=== PATIENT | female | born 1940 | race African-American/Black ===

== ENCOUNTER → 2017-02-13 | Outpatient (CLI) | payer MEDICARE, MEDICAID ==
--- NOTE | 2017-02-13 16:44 | WOMENS IMAGING REPORT ---
EXAM DESCRIPTION: BILAT SCREENING MAMMO W/CAD COMPLETED DATE/TIME: 02/13/2017 8:21 am REASON FOR STUDY: SCREENING MAMMO Z12.31 ENCNTR SCREEN MAMMOGRAM FOR MALIGNANT NEOPLASM OF DEO COMPARISON: 2008 to 2015 TECHNIQUE: Standard craniocaudal and mediolateral oblique views of each breast recorded using digita l acquisition. LIMITATIONS: None. FINDINGS: No masses, calcifications or architectural distortion. No areas of suspicion. Read with the assistance of CAD. .[facility] - R2 Cenova Version 1.3 .[facility] Imaging - R2 Cenova Version 1.3 .[facility] - R2 Cenova Version 2.4 .[facility] - R2 Cenova Version 2.4 .[facility] - R2 Stamp Collector Version 9.2 IMPRESSION: NORMAL MAMMOGRAM. BIRADS 1. BREAST DENSITY: a. The breasts are almost entirely fatty. BIRAD: 1 NEGATIVE RECOMMENDATION: ROUTINE SCREENING COMMENT: The patient has been notified of the results by letter per SA requirements. Additional no tification policies are in place for contacting patient with suspicious or incomplete findings. Quality ID #[id number]: The [employer] recommends an annual screening mammogram for women aged 40 years or over. This facility utilizes a reminder system to ensure that all patients receive reminder letters, and/or direct phone calls for appointments. This includes reminders for routine scr eening mammograms, diagnostic mammograms, or other Breast Imaging Interventions when appropriate. Th is patient will be placed in the appropriate reminder system. The [employer] (ACR) has developed recommendations for screening MRI of the breast s in certain patient populations, to be used in conjunction with mammography. Breast MRI surveillanc e may be appropriate for women with more than 20% lifetime risk of developing breast cancer as deter mined by genetic testing, significant family history of the disease, or history of mantle radiation f or Hodgkins Disease. ACR Practice Guidelines 2008. TECHNICAL DOCUMENTATION: FINDING NUMBER: (1) ASSESSMENT: (1) JOB ID: [id number] [employer]- All Rights Reserved
== END ==
LOC: WI 07:55
PROVIDERS: ATTEND Internal Medicine
DX: Z12.31 Encounter for screening mammogram for malignant neoplasm of breast (principal)
CPT/HCPCS: 77067; G0202

== ENCOUNTER → 2017-08-04 | Outpatient (CLI) | payer MEDICAID, MEDICARE ==
--- NOTE | 2017-08-04 12:23 | WOMENS IMAGING REPORT ---
EXAM DESCRIPTION: BONE DENSITY HIP/SPINE COMPLETED DATE/TIME: 08/04/2017 11:41 am REASON FOR STUDY: AGE-RELATED OSTEOPROSIS; M81.0 M81.0 AGE-RELATED OSTEOPOROSIS W/O CURRENT PATHOLO [facility] COMPARISON: 08/04/2015 10/24/2005 TECHNIQUE: Dual-Energy X-ray Absorptiometry (DEXA) of the AP Spine and Hip. LIMITATIONS: None. FINDINGS: LUMBAR SPINE: The bone mineral density (BMD) measured from L1-L4 in the AP projection correlates with a T-score of -1.4, which is osteopenia as defined by the World Health Organization. HIP: The bone mineral density (BMD) measured in the left hip correlates with a T-score of -2.5 in the femo ral neck, which is osteoporosis as defined by the World Health Organization. IMPRESSION: 1. LUMBAR SPINE: OSTEOPENIA. 2. HIP: OSTEOPOROSIS. COMMENT: The World Health Organization defines low BMD as follows: T-score: Normal: Greater than -1.0 Osteopenia: Between -1.0 and -2.5 Osteoporosis: Less than -2.5 without fractures Established osteoporosis: Less than -2.5 with fractures In general, you may wish to consider: Diagnosis Treatment Follow-up DEXA Normal BMD Prevention 2-3 years Osteopenia Prevention/Therapy 1-2 years Osteoporosis Therapy Yearly TECHNICAL DOCUMENTATION: JOB ID: [id number] [employer]- All Rights Reserved Reading location - IP/workstation name: [email or web address]
== END ==
LOC: WI 10:29
PROVIDERS: ATTEND Internal Medicine Endocrinology, Diabetes & Metabolism
DX: M81.0 Age-related osteoporosis without current pathological fracture (principal)
CPT/HCPCS: 77080

== ENCOUNTER → 2018-02-14 | Outpatient (CLI) | payer MEDICARE ==
--- NOTE | 2018-02-14 10:22 | WOMENS IMAGING REPORT ---
EXAM DESCRIPTION: 3D SCREENING MAMMO BILAT COMPLETED DATE/TIME: 02/14/2018 10:13 am REASON FOR STUDY: SCREENING MAMMO Z12.31 ENCNTR SCREEN MAMMOGRAM FOR MALIGNANT NEOPLASM OF DEO COMPARISON: Multiple since 2008 TECHNIQUE: Standard craniocaudal and mediolateral oblique views of each breast recorded using digita l acquisition and breast tomosynthesis. LIMITATIONS: None. FINDINGS: Findings present which are benign by mammographic criteria. No suspicious masses, calcifi cations or architectural distortion. Pertinent benign findings: Benign bilateral breast parenchymal calcifications and left subcentimeter retroareolar nodule Read with the assistance of CAD. .[facility] - R2 Cenova Version 1.3 .[facility] Imaging - R2 Cenova Version 1.3 .[facility] Imaging - R2 Cenova Version 2.4 .[facility] - R2 Cenova Version 2.4 .[facility] - R2 Food Chemist Version 9.2 Benign mammographic findings may include one or more of the following: Smooth masses, popcorn/rim/co arse calcifications, asymmetries, post-procedure changes, and lesions with long-standing stability. IMPRESSION: BENIGN MAMMOGRAPHIC FINDINGS. BIRADS 2 BREAST DENSITY: b. There are scattered areas of fibroglandular density. BIRAD: 2 BENIGN FINDING(S) RECOMMENDATION: RECOMMENDATION: ROUTINE SCREENING Please continue yearly bilateral screening mammography/tomosynthesis in January 2019 COMMENT: The patient has been notified of the results by letter per SA requirements. Additional no tification policies are in place for contacting patient with suspicious or incomplete findings. Quality ID #225: The [employer] recommends an annual screening mammogram for women aged 40 years or over. This facility utilizes a reminder system to ensure that all patients receive reminder letters, and/or direct phone calls for appointments. This includes reminders for routine scr eening mammograms, diagnostic mammograms, or other Breast Imaging Interventions when appropriate. Th is patient will be placed in the appropriate reminder system. The [employer] (ACR) has developed recommendations for screening MRI of the breast s in certain patient populations, to be used in conjunction with mammography. Breast MRI surveillanc e may be appropriate for women with more than 20% lifetime risk of developing breast cancer as deter mined by genetic testing, significant family history of the disease, or history of mantle radiation f or Hodgkins Disease. ACR Practice Guidelines 2008. DBT Technology DBT is a type of tomographic mammography. With conventional mammography, overlapping breast tissue ma y make lesions difficult to detect, even with good compression. DBT uses an x-ray tube that rotates a round the breast, taking images at different angles. These images are then combined to create thin sl ices of the breast that the radiologist can view as a 3D reconstruction. The Platter unit can perform full-field digital mammograms (2D imaging); or DBT (3D imaging); or both, in a combination mode that quickly performs both the mammogram and the tomosynthesis scan while the breast is still compressed. PQRS 6045F: Fluoroscopic imaging is not utilized for breast tomosynthesis. TECHNICAL DOCUMENTATION: FINDING NUMBER: (1) ASSESSMENT: (1) JOB ID: [id number] [employer]- All Rights Reserved Reading location - IP/workstation name: [email or web address]
== END ==
LOC: WI 09:37
PROVIDERS: ATTEND Physician Assistant Medical
DX: Z12.31 Encounter for screening mammogram for malignant neoplasm of breast (principal)
CPT/HCPCS: 77063; 77067

== ENCOUNTER 2018-10-14 12:09 | Emergency (ER) | payer MEDICARE ==
[2018-10-14] MEDS ORDERED: MECLIZINE HCL 12.5 MG TABLET PO ONE (13:01)
--- NOTE | 2018-10-14 13:04 | ER Document Report ---
Addendum entered and electronically signed by ARTHUR WILSON PA-C 10/14/18 14:47: Course - Re-evaluation Re-evalutation: 10/14/18 14:47 Pt had an episode of vomiting in subwaiting. Zofran ordered. - Vital Signs Vital signs: Temp Pulse Resp BP Pulse Ox 97.8 F 78 18 150/77 H 100 10/14/18 12:14 10/14/18 12:14 10/14/18 12:14 10/14/18 12:14 10/14/18 12:14 - Laboratory Result Diagrams: 10/14/18 13:36 10/14/18 13:36 Laboratory results interpreted by me: 10/14/18 10/14/18 13:36 13:36 Hgb 11.8 L RDW 14.7 H BUN 21 H Est GFR (Non-Af Amer) 57 L Calcium 10.7 H Magnesium 1.5 L Total Protein 8.5 H Original Note: ED Medical Screen (RME) - General Chief Complaint: Dizziness Stated Complaint: DIZZINESS Time Seen by Provider: 10/14/18 12:54 Primary Care Provider: SUMAN CALDERÓN PA-C [Primary Care Provider] - Follow up as needed TRAVEL OUTSIDE OF THE [place] IN LAST 30 DAYS: No - HPI Notes: 10/14/18 13:01 Patient is a 78-year-old female with a history of hypertension who presents for further evaluation by her family providers office for intermittent dizziness over the past 30 hours. Patient states that she had dizziness beginning yesterday morning and intermittently since then. She is not sure if it is she that is spinning or the room. Patient states that every now again when she is walking she will lose balance to her left side. Patient states that she otherwise feels well and is eating and drinking without difficulty. She is urinating normally and having normal bowel movements. She has not noticed any weakness. Denies drug allergies. No history of CVA, LA, TIA, diabetes, or A. fib. She is not on any blood thinning medications. Denies any headache, fever, head injury, neck pain, changes in vision/speech/mentation/hearing, URI, sore throat, chest pain, palpitations, syncope, cough, shortness of breath, wheeze, dyspnea, abdominal pain, nausea/vomiting/diarrhea, urinary retention, dysuria, hematuria, loss of control of bowel or bladder, numbness/tingling, muscle paralysis/weakness, or rash. I have treated and performed a rapid initial assessment of this patient. A com prehensive ED assessment and evaluation of the patient, analysis of test results and completion of medical decision making process will be conducted by additional ED providers. Patient was able to walk around the room without difficulty for me aside from one incident where she did want to fall over to the left side. That only occurred once throughout her entire walk and Romberg testing. PHYSICAL EXAMINATION: GENERAL: Well-appearing, well-nourished and in no acute distress. A&Ox4. Answers questions appropriately. HEAD: Atraumatic, normocephalic. Non-tender. EYES: Pupils equal round and reactive to light, extraocular movements intact, sclera anicteric, conjunctiva are normal. No nystagmus. vis garcia intact. ENT: EAC clear b/l. TM's intact b/l without erythema, fluid, or perforation. Nares patent and without discharge. oropharynx clear without exudates. No tonsilar hypertrophy or erythema. Moist mucous membranes. NECK: Normal range of motion, supple without lymphadenopathy. No rigidity/meningismus. No midline tenderness. LUNGS: Breath sounds clear to auscultation bilaterally and equal. No wheezes rales or rhonchi. HEART: Regular rate and rhythm without murmurs, rubs, gallops. ABDOMEN: Soft, nontender, nondistended abdomen. No guarding, no rebound. N ormal bowel sounds present. No CVA tenderness bilaterally. Musculoskeletal: Ext's b/l: FROM to passive/active. Strength 5+/5. No deficits noted. No bony tenderness of extremities. Extremities: No cyanosis, clubbing, or edema b/l. Peripheral pulses 2+. Capillary refill less than 2 seconds. NEUROLOGICAL: NIH 0. GCS 15. Cranial nerves grossly intact. Normal speech, normal gait. Normal sensory, motor exams. Reflexes 2+ b/l. JACKIE's negative. Pronator drift negative. Heel/lazar, finger/nose wnl. Romberg neg. PSYCH: Normal mood, normal affect. SKIN: Warm, Dry, normal turgor, no rashes or lesions noted. - Related Data Allergies/Adverse Reactions: No Known Allergies Allergy (Verified 10/14/18 12:10) Past Medical History - Past Medical History Cardiac Medical History: Reports: Hx Hypertension - medicated - Immunizations Hx Diphtheria, Pertussis, Tetanus Vaccination: Yes Physical Exam - Vital signs Vitals: Temp Pulse Resp BP Pulse Ox 97.8 F 78 18 150/77 H 100 10/14/18 12:14 10/14/18 12:14 10/14/18 12:14 10/14/18 12:14 10/14/18 12:14 Course - Vital Signs Vital signs: Temp Pulse Resp BP Pulse Ox 97.8 F 78 18 150/77 H 100 10/14/18 12:14 10/14/18 12:14 10/14/18 12:14 10/14/18 12:14 10/14/18 12:14 Doctor's Discharge - Discharge Referrals: SUMAN CALDERÓN PA-C [Primary Care Provider] - Follow up as needed
[2018-10-14 14:06] LABS: ABSOLUTE EOSINOPHILS # (AUTO) 0.1 10^3/uL (0.0-0.6); ABSOLUTE LYMPHOCYTES (AUTO) 1.8 10^3/uL (0.5-4.7); ABSOLUTE MONOCYTES (AUTO) 0.6 10^3/uL (0.1-1.4); ABSOLUTE NEUT (AUTO) 4.2 10^3/uL (1.7-8.2); BASOPHILS % (AUTO) 0.6 % (0-2); EOSINOPHILS % (AUTO) 1.9 % (0-6); HEMATOCRIT 36.4 % (36.0-47.0); HEMOGLOBIN 11.8 g/dL (12.0-15.5); LYMPHOCYTES % (AUTO) 26.5 % (13-45); MEAN CORPUSCULAR HEMOGLOBIN 27.7 pg (27.0-33.4); MEAN CORPUSCULAR HGB CONC 32.4 g/dL (32.0-36.0); MEAN CORPUSCULAR VOLUME 85 fl (80-97); MONOCYTES % (AUTO) 9.1 % (3-13); PLATELET COUNT 300 10^3/uL (150-450); RED BLOOD COUNT 4.26 10^6/uL (3.72-5.28); RED CELL DISTRIBUTION WIDTH 14.7 % (11.5-14.0); SEGMENTED NEUTROPHILS % (AUTO) 61.9 % (42-78); TOTAL CELLS COUNTED % (AUTO) 100 %; WHITE BLOOD COUNT 6.8 10^3/uL (4.0-10.5)
--- NOTE | 2018-10-14 14:10 | RADIOLOGY REPORT (SQ) ---
EXAM DESCRIPTION: CT HEAD WITHOUT COMPLETED DATE/TIME: 10/14/2018 2:00 pm REASON FOR STUDY: dizziness COMPARISON: 10/23/2009 TECHNIQUE: Axial images acquired through the brain without intravenous contrast. Images reviewed wi th bone, brain and subdural windows. Images stored on PACS. All CT scanners at this facility use dose modulation, iterative reconstruction, and/or weight based d osing when appropriate to reduce radiation dose to as low as reasonably achievable (ALARA). [facility]: Dose Right [facility]: CareDose [facility]: Dose Right [facility]: Teradose 4D [facility]: Smart Singular RADIATION DOSE: CT Rad equipment meets quality standard of care and radiation dose reduction techniq ues were employed. CTDIvol: 53.2 mGy. DLP: 1097 mGy-cm. mGy. LIMITATIONS: None. FINDINGS: VENTRICLES: Normal size and contour. CEREBRUM: No masses. No hemorrhage. No midline shift. No evidence for acute infarction. Normal gra y/white matter differentiation. No areas of low density in the white matter. CEREBELLUM: No masses. No hemorrhage. No alteration of density. No evidence for acute infarction. EXTRAAXIAL SPACES: No fluid collections. No masses. ORBITS AND GLOBE: No intra- or extraconal masses. Normal contour of globe without masses. CALVARIUM: No fracture. PARANASAL SINUSES: No fluid or mucosal thickening. SOFT TISSUES: No mass or hematoma. OTHER: No other significant finding. IMPRESSION: No acute intracranial pathology. EVIDENCE OF ACUTE STROKE: NO. COMMENT: Quality ID # [id number]: Final reports with documentation of one or more dose reduction techniques (e.g., Automated exposure control, adjustment of the mA and/or kV according to patient size, use of iterative reconstruction technique) TECHNICAL DOCUMENTATION: JOB ID: [id number] [employer]- All Rights Reserved Reading location - IP/workstation name: [email or web address]
[2018-10-14 14:19] LABS: APPEARANCE,URINE CLEAR; BILIRUBIN,URINE NEGATIVE (NEGATIVE); COLOR,URINE YELLOW; GLUCOSE, URINE NEGATIVE (NEGATIVE); KETONES,URINE NEGATIVE (NEGATIVE); LEUKOCYTE ESTERASE,URINE NEGATIVE (NEGATIVE); NITRITE,URINE NEGATIVE (NEGATIVE); PROTEIN,URINE NEGATIVE (NEGATIVE); URINE SPECIFIC GRAVITY 1.016; UROBILINOGEN,URINE NEGATIVE mg/dL (<2.0)
[2018-10-14 14:22] LABS: ALANINE AMINOTRANSFERASE 12 U/L (9-52); ALBUMIN 4.5 g/dL (3.5-5.0); ALKALINE PHOSPHATASE 97 U/L (38-126); ANION GAP 12 (5-19); ASPARTATE AMINO TRANSFERASE 22 U/L (14-36); BILIRUBIN,DIRECT 0.3 mg/dL (0.0-0.4); BILIRUBIN,TOTAL 0.5 mg/dL (0.2-1.3); BLOOD UREA NITROGEN 21 mg/dL (7-20); CALCIUM 10.7 mg/dL (8.4-10.2); CARBON DIOXIDE 27 mmol/L (22-30); CHLORIDE 102 mmol/L (98-107); GLUCOSE 97 mg/dL (75-110); POTASSIUM 4.9 mmol/L (3.6-5.0); SODIUM 141.2 mmol/L (137-145); TOTAL PROTEIN 8.5 g/dL (6.3-8.2)
[2018-10-14] MEDS ORDERED: ONDANSETRON 4 MG TAB.RAPDIS PO ONE (14:46)
[2018-10-14] MEDS ORDERED: NORMAL SALINE 500 ML IV ONE (17:41)
[2018-10-14] MEDS: MAGNESIUM SULFATE/D5W 1 GM/100 ML RTUPB IV SCH ×2 (18:45→18:46)
--- NOTE | 2018-10-14 19:15 | ER Document Report ---
ED General - General Chief Complaint: Dizziness Stated Complaint: DIZZINESS Time Seen by Provider: 10/14/18 12:54 Primary Care Provider: SUAMN CALDERÓN PA-C [Primary Care Provider] - Follow up in 3-5 days Mode of Arrival: Ambulatory Information source: Patient Notes: This is a 78-year-old female with a history of vertigo who presents to the emergency room with an episode of dizziness while walking around. Patient states is very similar to previous episodes of vertigo. She has been seen by ENT in the past and treated for this in the past. She denies any focal motor weakness. She denies any visual changes. She denies any speech changes. TRAVEL OUTSIDE OF THE [place] IN LAST 30 DAYS: No - HPI Onset: Just prior to arrival Onset/Duration: Gradual Quality of pain: No pain Severity: None Pain Level: Denies Associated symptoms: denies: Chest pain, Fever, Shortness of breath Exacerbated by: Denies Relieved by: Denies Similar symptoms previously: Yes Recently seen / treated by doctor: No - Related Data Allergies/Adverse Reactions: No Known Allergies Allergy (Verified 10/14/18 12:10) Past Medical History - General Information source: Patient - Social History Smoking Status: Never Smoker Cigarette use (# per day): No Chew tobacco use (# tins/day): No Drug Abuse: None Lives with: Family Family History: Reviewed & Not Pertinent Patient has suicidal ideation: No Patient has homicidal ideation: No - Past Medical History Cardiac Medical History: Reports: Hx Hypertension - medicated Renal/ Medical History: Denies: Hx Peritoneal Dialysis Surgical Hx: Negative - Immunizations Hx Diphtheria, Pertussis, Tetanus Vaccination: Yes Review of Systems - Review of Systems Constitutional: denies: Chills, Fever EENT: No symptoms reported Cardiovascular: No symptoms reported Respiratory: No symptoms reported Gastrointestinal: No symptoms reported Genitourinary: No symptoms reported Female Genitourinary: No symptoms reported Musculoskeletal: No symptoms reported Skin: No symptoms reported Hematologic/Lymphatic: No symptoms reported Neurological/Psychological: See HPI Physical Exam - Vital signs Vitals: Temp Pulse Resp BP Pulse Ox 97.8 F 78 18 150/77 H 100 10/14/18 12:14 10/14/18 12:14 10/14/18 12:14 10/14/18 12:14 10/14/18 12:14 Notes: Physical exam: GENERAL: Vision is alert and oriented x3, no acute distress HEAD: Atraumatic, normocephalic. EYES: Pupils equal round and reactive to light, extraocular movements intact, sclera anicteric, conjunctiva are normal. ENT: TMs normal, nares patent, oropharynx clear without exudates. Moist mucous membranes. NECK: Normal range of motion, supple without obvious mass or JVD. LUNGS: Breath sounds clear to auscultation bilaterally and equal. No wheezes rales or rhonchi. HEART: Regular rate and rhythm without murmurs, rubs or gallops. ABDOMEN: Soft, normoactive bowel sounds. No tenderness to palpation. No guarding, no rebound. No masses appreciated. EXTREMITIES: Normal range of motion, no pitting or edema. No clubbing or cyanosis. NEUROLOGICAL: Cranial nerves II through XII grossly intact. Normal speech, mo tor 5/5, sensory grossly intact, cerebellar ([id number]) is quite good. Patient is alert and keenly responsive, she knows the month and her age, she is able to open and close her eyes and face, her gaze is normal, her visual garcia are intact, there is no facial palsy, there is no motor arm or leg drift, there is no limb ataxia, there is no sensory deficit, her language is quite good, there is no dysarthria or extinction. Her NIH is 0. PSYCH: Normal mood, normal affect. SKIN: Warm, Dry, normal turgor, no rashes or lesions noted. Course - Re-evaluation Re-evalutation: 10/14/18 22:00 Note: Symptoms are most likely related to benign positional vertigo. Her neurologic exam is quite good. She has had symptoms similar to this from vertigo and has been seen in the past by ENT. I will give her a referral. I will give her some meclizine. And some positional change routines for possible therapy. - Vital Signs Vital signs: Temp Pulse Resp BP Pulse Ox 97.8 F 78 13 110/64 98 10/14/18 12:14 10/14/18 12:14 10/14/18 20:01 10/14/18 20:01 10/14/18 20:01 - Laboratory Result Diagrams: 10/14/18 13:36 10/14/18 13:36 Laboratory results interpreted by me: 10/14/18 10/14/18 13:36 13:36 Hgb 11.8 L RDW 14.7 H BUN 21 H Est GFR (Non-Af Amer) 57 L Calcium 10.7 H Magnesium 1.5 L Total Protein 8.5 H - Diagnostic Test Radiology reviewed: Image reviewed, Reports reviewed - CT of the head shows no acute intracranial process Discharge - Discharge Clinical Impression: Dizziness Condition: Stable Disposition: HOME, SELF-CARE Instructions: Dizziness ([facility]), Meclizine ([facility]), Vertigo ([facility]) Additional Instructions: As we discussed, the CT showed no evidence of stroke. Your neurologic exam look quite good today Your labs look good. You did have a mildly low magnesium and you were given magnesium in the emergency room. I would like you to follow-up with your primary care doctor. Take the medicine as prescribed. Try the maneuvers shown in the diagram in the handout. Return to the emergency room for worsening dizziness, weakness or any concerns or getting worse. Prescriptions: Meclizine HCl [Antivert 12.5 mg Tablet] 12.5 mg PO BID PRN #14 tablet PRN Reason: Ondansetron HCl [Zofran 4 mg Tablet] 1 - 2 tab PO Q4H PRN #10 tablet PRN Reason: Referrals: SUMAN CALDERÓN PA-C [Primary Care Provider] - Follow up in 3-5 days
[2018-10-14] MEDS ORDERED: ONDANSETRON ODT 4 MG TAB (6 TAB/ER DISP) PO PRN (20:12)
[2018-10-14 20:31] VITALS: BP 110/64
== END 2018-10-14 20:25 | disposition home or self-care (01) ==
LOC: ER 12:09
DX: R42 Dizziness and giddiness (principal); I10 Essential (primary) hypertension
CPT/HCPCS: 99284; 96365; 36415; 83735; 85025; 80053; 81001; 70450; A9270 ×3; J3475; J7040; J3490; S0119

== ENCOUNTER → 2019-11-18 | Outpatient (CLI) | payer MEDICARE ==
--- NOTE | 2019-11-18 15:19 | RADIOLOGY REPORT (SQ) ---
EXAM DESCRIPTION: NM HIDA SCAN WITH CCK IMAGES COMPLETED DATE/TIME: 11/18/2019 3:04 pm REASON FOR STUDY: R10.11 RIGHT UPPER QUADRANT PAIN R10.11 RIGHT UPPER QUADRANT PAIN COMPARISON: None. RADIONUCLIDE AND DOSE: DOSAGE RADIONUCLIDE: 5.28 millicuries Tc99m Mebrofenin. DOSAGE CCK: 1.6 micrograms. DOSAGE MORPHINE: Not required. The route of agent administration: Intravenous TECHNIQUE: Serial imaging right upper quadrant up to 60 minutes following injection of radionuclide. CCK injected after gallbladder visualized. LIMITATIONS: None. FINDINGS: LIVER: Normal visualization without areas of photopenia. INTRAHEPATIC BILE DUCTS: Normal size and no delay in visualization. COMMON BILE DUCT: Normal without dilatation. GALLBLADDER: Normal visualization. Calculated ejection fraction of 41%. Normal range is greater th an 35%. PHYSICAL RESPONSE: Patients presenting complaint was reproduced. OTHER: No other significant finding. IMPRESSION: Incongruent study. No evidence of cystic or common bile duct obstruction. Patient's sy mptoms were reproduced with CCK administration. Ejection fraction however is normal calculated 41%. TECHNICAL DOCUMENTATION: JOB ID: [id number] [employer]- All Rights Reserved Reading location - IP/workstation name: [email or web address]
== END ==
LOC: RAD 12:50
PROVIDERS: ATTEND Nurse Practitioner
DX: R10.11 Right upper quadrant pain (principal)
CPT/HCPCS: 78227; J2805; A9537; Q9969

== ENCOUNTER 2020-02-20 14:00 | Inpatient (IN) | payer MEDICARE, OTHER ==
[2020-02-20] MEDS ORDERED: ONDANSETRON HCL INJ/PF 4 MG/2 ML SDV IV ONE (15:08)
[2020-02-20] MEDS ORDERED: NORMAL SALINE 1000 ML 1,000 ML IV ONE ×2 (15:09→16:22)
--- NOTE | 2020-02-20 15:14 | ER Document Report ---
ED General - General TRAVEL OUTSIDE OF THE [place] IN LAST 30 DAYS: No <ELIZ DAVIDSON - Last Filed: 02/20/20 19:37> <LOU BRAND - Last Filed: 02/20/20 23:27> - General Chief Complaint: Abdominal Pain Stated Complaint: STOMACH PAIN,COUGH Time Seen by Provider: 02/20/20 14:38 Primary Care Provider: RUTH MAST FNP [Primary Care Provider] - Follow up as needed - HPI Notes: Patient is a 79-year-old female with a history of hypertension who presents for abdominal pain for the past 4 -5 weeks. Patient had work-up done of her ga llbladder which was negative. She has a gastroenterology appointment scheduled for 02/27/2020. Patient states her abdominal pain worsened in the last week causing her to come to the ED today. She describes the pain as sharp and crampy to her lower abdomen that radiates to her back on both sides. She endorses productive cough for 1 week and diarrhea for 1 day, as well as nausea. She denies vomiting, fever, shortness of breath, chest pain, and dysuria. Patient reports decreased appetite. Patient has been taking pantoprazole with minimal improvement of symptoms. Patient denies tobacco, alcohol, and recreational drug use. Patient reports a history of cyst removal from her abdomen but denies any other surgeries. (ELIZ DAVIDSON) - Related Data Allergies/Adverse Reactions: No Known Allergies Allergy (Verified 10/14/18 12:10) Past Medical History - General Information source: Patient - Social History Smoking Status: Never Smoker Frequency of alcohol use: None Drug Abuse: None Family History: Reviewed & Not Pertinent - Past Medical History Cardiac Medical History: Reports: Hx Hypertension - medicated Renal/ Medical History: Denies: Hx Peritoneal Dialysis - Immunizations Hx Diphtheria, Pertussis, Tetanus Vaccination: Yes <ELIZ DAVIDSON - Last Filed: 02/20/20 19:37> Review of Systems - Review of Systems Constitutional: No symptoms reported EENT: No symptoms reported Cardiovascular: No symptoms reported Respiratory: See HPI Gastrointestinal: See HPI Genitourinary: No symptoms reported Female Genitourinary: No symptoms reported Musculoskeletal: No symptoms reported Skin: No symptoms reported Hematologic/Lymphatic: No symptoms reported Neurological/Psychological: No symptoms reported <ELIZ DAVIDSON - Last Filed: 02/20/20 19:37> Physical Exam <ELIZ DAVIDSON - Last Filed: 02/20/20 19:37> - Vital signs Vitals: Temp Pulse Resp BP Pulse Ox 98.1 F 109 H 20 110/59 L 95 02/20/20 14:06 02/20/20 14:06 02/20/20 14:06 02/20/20 14:06 02/20/20 14:06 - Notes Notes: PHYSICAL EXAMINATION: VITALS: Vitals reviewed and within normal limits. GENERAL: Well-appearing, well-nourished and in no acute distress. HEAD: Atraumatic, normocephalic. EYES: Pupils equal round and reactive to light, extraocular movements intact, sclera anicteric, conjunctiva are normal. ENT: nares patent, oropharynx clear without exudates. Moist mucous membranes. NECK: Normal range of motion, supple without lymphadenopathy. LUNGS: Breath sounds clear to auscultation bilaterally and equal. No wheezes rales or rhonchi. HEART: Regular rate and rhythm without murmurs. ABDOMEN: Soft abdomen with normoactive bowel sounds. Tenderness to palpation to the mid epigastric and periumbilical areas. No guarding, no rebound. No masses appreciated. EXTREMITIES: Normal range of motion, no pitting or edema. No cyanosis. NEUROLOGICAL: No focal neurological deficits. Moves all extremities spontaneously and on command. PSYCH: Normal mood, normal affect. SKIN: Warm, Dry, normal turgor, no rashes or lesions noted. (ELIZ DAVIDSON) Course - Laboratory Result Diagrams: 02/20/20 18:02 02/20/20 15:34 <ELIZ DAVIDSON - Last Filed: 02/20/20 19:37> - Laboratory Result Diagrams: 02/20/20 18:02 02/20/20 15:34 <LOU BRAND - Last Filed: 02/20/20 23:27> - Re-evaluation Re-evalutation: Patient is a 79-year-old female with a history of hypertension who presents for abdominal pain for the past 4 weeks that worsened in the past week. Patient endorses cough, diarrhea, nausea, and lack of appetite. 1 L of normal saline and 4 mg Zofran IV ordered. Vital signs are within normal limits and patient is afebrile. On exam, patient has midepigastric and periumbilical tenderness with no CVA tenderness. 02/20/20 16:18 Notified by nursing that potassium is elevated at 6.0. Cr noted to be elevated at 4.04 with most recent Cr 0.95 in September 2018. Another 1L of NS ordered and CT abdomen/pelvis changed to no IV contrast. 02/20/20 16:58 Notified by nursing that there was an abnormality with a CBC and the pathologist would be looking at tomorrow. I called lab myself and spoke with Kari with hematology. I was informed that they would send down a log feeder to redraw the CBC due to platelet count of 70K with no clumping seen on the slide. Patient's most recent platelet count was 300K and lab wanted to ensure today's platelet count was accurate. She was also concerned as she saw abnormal cells on the slide that she would like the pathologist to look at. She reports seeing "immatures", "metas" and "mylos"and the possibility that flow cytometry might be needed. 02/20/20 17:05 CT Abd/pelvis w/o contrast shows enlarged right kidney, demonstrating marked perinephric fat stranding and obstruction of the renal pelvis fat. Minimal ureterectasis with the appearance of a 3 mm rounded mid ureteral stone. Impression: While findings may represent right-sided obstructive uropathy, the degree of hydronephrosis and perinephric fat stranding appears to be out of proportion to the relatively mild ureterectasis and 3 mm rounded ureterolith. Recommend correlation for possible superimposed pyelonephritis. 02/20/20 17:28 I consulted my attending, Dr. Koenig, concerning this patient. He recommends ordering a lactic acid and blood cultures. Due to her OPAL, he would like a Piper catheter placed with monitoring of I's and O's. To treat her elevated potassium, he recommends 1gm calcium gluconate IV, 1 amp of sodium bicarb IV, 1 amp of D50, and 8 units of insulin IV push. To address her CT findings and possible pyelonephritis 1gm of Rocephin IV will be ordered. Orders placed and waiting on UA and repeat CBC to result. 02/20/20 19:09 Talked with nursing and all medications have been given, piper placed with good but dark urine output. Still waiting on CBC, UA, and lactic to result. 02/20/20 19:19 UA shows protein 100, trace ketones and moderate blood. WBC 163 with trace bacteria. Negative leukocyte esterase and negative nitrites. 02/20/20 19:23 Lab called Melissa Daniel RN and notified of abnormal CBC. CBC shows elevated WBC of 30, PLT of 70, smudge cells presents as well as other immature cells. Pathologist will review the slides tomorrow. 02/20/20 19:30 I discussed the UA and CBC results with Dr. Koenig. Patient's presentation and workup is consistent with right pyelonephritis and acute kidney injury with complicated UTI and 3mm ureteral stone. Concern for sepsis with elevated WBC and tachycardia. Will need to transfer the patient for urology con sult. Will contact [facility] for transfer. 02/20/20 19:35 Called [facility] Transfer Center. Will be called back by clinical alterations supervisor. 02/20/20 19:44 [facility] clinical alterations supervisor called back and will contact urology for consult. (ELIZ DAVIDSON) 02/20/20 20:10 Bedside report received from DAVID Najera. 02/20/20 20:[address] Figueredo, the urologist at [facility]. He states that at this time, patient is not a surgical candidate from a urology standpoin t, but he will talk to his hospitalist. He recommends Piper catheter placement. 02/20/20 23:12 I had not heard back from [facility] hospitalist, therefore I called them and spoke with Jonnathan from the transfer center. He states that since Dr. Harvey is not doing surgery, hospitalist will not admit the patient. We will attempt to admit the patient here at [facility]. 02/20/20 23:[address] Woodall, the hospitalist. Patient will be admitted to the medical floor. 02/20/20 23:25 Updated the patient on status. Called and left a message on the daughter's p scott. (SUNDAYLOU Jc) - Vital Signs Vital signs: Temp Pulse Resp BP Pulse Ox 98.1 F 109 H 22 H 138/80 H 100 02/20/20 20:00 02/20/20 14:06 02/20/20 21:00 02/20/20 21:00 02/20/20 21:00 - Laboratory Laboratory results interpreted by me: 02/20/20 02/20/20 02/20/20 15:34 18:02 18:35 WBC 30.0 H* RBC 3.69 L Hgb 10.4 L Hct 30.6 L RDW 15.6 H Plt Count 70 L Seg Neuts % (Manual) 5 L Band Neutrophils % 1 L Lymphocytes % (Manual) 59 H Monocytes % (Manual) 28 H Immature Leukocytes % 6 H Abs Lymphs (Manual) 17.7 H Abs Monocytes (Manual) 8.4 H Sodium 135.7 L Potassium 6.0 H* Carbon Dioxide 20 L BUN 42 H Creatinine 4.04 H Est GFR ( Amer) 13 L Est GFR (MDRD) Non-Af 11 L Glucose 123 H Direct Bilirubin 0.5 H Urine Protein 100 H Urine Ketones TRACE H Urine Blood MODERATE H - EKG Interpretation by Me Additional EKG results interpreted by me: Sinus tachycardia with a rate of 108. QTc 440. Normal axis. No T wave inversions or ST segment changes in consecutive leads. 02/20/20 15:23 (ELIZ DAVIDSON) Discharge <ELIZ DAVIDSON - Last Filed: 02/20/20 19:37> - Discharge Admitting Provider: Jose C (Hospitalist) Unit Admitted: Medical Floor <LOU BRAND - Last Filed: 02/20/20 23:27> - Discharge Clinical Impression: Acute kidney injury, Pyelonephritis of right kidney, Complicated urinary tract infection, Kidney stone on right side, Thrombocytopenia Sepsis Qualifiers: Sepsis type: sepsis due to unspecified organism Sepsis acute organ dysfunction status: with acute organ dysfunction Severe sepsis acute organ dysfunction type: acute renal failure Acute renal failure type: unspecified Severe sepsis shock status: unspecified Qualified Code(s): A41.9 - Sepsis, unspecified organism Abdominal pain Qualifiers: Abdominal location: generalized Qualified Code(s): R10.84 - Generalized abdominal pain Condition: Stable Disposition: ADMITTED INPATIENT Referrals: RUTH MAST FNP [Primary Care Provider] - Follow up as needed
--- NOTE | 2020-02-20 16:11 | RADIOLOGY REPORT (SQ) ---
EXAM DESCRIPTION: CHEST SINGLE VIEW IMAGES COMPLETED DATE/TIME: 02/20/2020 3:50 pm REASON FOR STUDY: cough COMPARISON: 09/18/2018 EXAM PARAMETERS: NUMBER OF VIEWS: One view. TECHNIQUE: Single frontal radiographic view of the chest acquired. RADIATION DOSE: NA LIMITATIONS: None. FINDINGS: LUNGS AND PLEURA: No opacities, masses or pneumothorax. No pleural effusion. MEDIASTINUM AND HILAR STRUCTURES: No masses. Contour normal. HEART AND VASCULAR STRUCTURES: Heart normal in size. Normal vasculature. BONES: No acute findings. Incidental note is made of severe degenerative changes of the right glenoh umeral joint and moderate right acromioclavicular arthropathy. Mild AC arthropathy and glenohumeral arthropathy are seen of the left shoulder. HARDWARE: None in the chest. OTHER: No other significant finding. IMPRESSION: NO ACUTE RADIOGRAPHIC FINDING IN THE CHEST. TECHNICAL DOCUMENTATION: JOB ID: [id number] 2010 [employer]- All Rights Reserved Reading location - IP/workstation name: [email or web address]
[2020-02-20 16:15] LABS: ALKALINE PHOSPHATASE 88 U/L (38-126); ANION GAP 12 (5-19); ASPARTATE AMINO TRANSFERASE 35 U/L (14-36); BILIRUBIN,DIRECT 0.5 mg/dL (0.0-0.4); BILIRUBIN,TOTAL 0.6 mg/dL (0.2-1.3); BLOOD UREA NITROGEN 42 mg/dL (7-20); CALCIUM 9.6 mg/dL (8.4-10.2); CARBON DIOXIDE 20 mmol/L (22-30); CHLORIDE 104 mmol/L (98-107); GLUCOSE 123 mg/dL (75-110); TOTAL PROTEIN 7.9 g/dL (6.3-8.2)
--- NOTE | 2020-02-20 17:00 | RADIOLOGY REPORT (SQ) ---
EXAM DESCRIPTION: CT ABD/PELVIS NO ORAL OR IV IMAGES COMPLETED DATE/TIME: 02/20/2020 4:38 pm REASON FOR STUDY: abdominal pain COMPARISON: Chest CT 09/18/2018 TECHNIQUE: CT scan of the abdomen and pelvis performed without intravenous or oral contrast. Images reviewed with lung, soft tissue, and bone windows. Reconstructed coronal and sagittal MPR images revi ewed. All images stored on PACS. All CT scanners at this facility use dose modulation, iterative reconstruction, and/or weight based d osing when appropriate to reduce radiation dose to as low as reasonably achievable (ALARA). [facility]: Dose Right [facility]: CareDose [facility]: Dose Right [facility]: Teradose 4D [facility]: [employer] RADIATION DOSE: CT Rad equipment meets quality standard of care and radiation dose reduction techniq ues were employed. CTDIvol: 12.2 mGy. DLP: 632 mGy-cm.mGy. LIMITATIONS: None. FINDINGS: LOWER CHEST: Bibasilar atelectasis. No focal consolidation or pleural effusion. NON-CONTRASTED LIVER, SPLEEN, ADRENALS: Evaluation limited by lack of IV contrast. No identified sign ificant masses. PANCREAS: No masses. No peripancreatic inflammatory changes. GALLBLADDER: No identified stones by CT criteria. No inflammatory changes to suggest cholecystitis. RIGHT KIDNEY AND URETER: The right kidney is enlarged, demonstrating marked perinephric fat stranding and obscuration of the renal pelvis fat. Minimal ureterectasis with the appearance of a 3 mm rounde d mid ureteral stone. LEFT KIDNEY AND URETER: No suspicious masses. Assessment limited by lack of IV contrast. No signifi cant calcifications. No hydronephrosis or hydroureter. AORTA AND RETROPERITONEUM: No aneurysm. No retroperitoneal masses or adenopathy. BOWEL AND PERITONEAL CAVITY: Mild, diffuse ascites is seen from the dome of the diaphragm to the pelv ic cul-de-sac. No focal bowel abnormalities are demonstrated. APPENDIX: Not visualized. PELVIS, BLADDER, AND ABDOMINAL WALL:The bladder is largely decompressed. Moderate free fluid is seen just cranial to the bladder. BONES: No significant findings. OTHER: No other significant finding. IMPRESSION: While findings may represent right-sided obstructive uropathy, the degree of hydronephro sis and perinephric fat stranding appears to be out of proportion to the relatively mild ureterectasi s and 3 mm rounded ureterolith. Recommend correlation for possible superimposed pyelonephritis. COMMENT: Quality ID # [id number]: Final reports with documentation of one or more dose reduction techniques (e.g., Automated exposure control, adjustment of the mA and/or kV according to patient size, use of iterative reconstruction technique) TECHNICAL DOCUMENTATION: JOB ID: [id number] 2010 [employer]- All Rights Reserved Reading location - IP/workstation name: [email or web address] - [email or web address]
[2020-02-20] MEDS ORDERED: CEFTRIAXONE 1 GM/D5W RTU 1 GM/50 ML RTUPB IV ONE (17:29)
[2020-02-20] MEDS ORDERED: CALCIUM GLUCONATE 1000 MG/10 ML INJ IV ONE (17:30)
[2020-02-20] MEDS ORDERED: SODIUM BICARBONATE 8.4% INJ 50 MEQ/50 ML DISP.SYRIN IV ONE (17:31)
[2020-02-20] MEDS ORDERED: DEXTROSE 50%-WATER 25 GM/50 ML DISP.SYRIN IV ONE (17:31)
[2020-02-20] MEDS ORDERED: INSULIN REG, HUMAN 100 UNIT/ML 3 ML VIAL (PYX) IV ONE (17:32)
--- NOTE | 2020-02-20 18:12 | EKG REPORT ---
SEVERITY:- BORDERLINE ECG - SINUS TACHYCARDIA CONSIDER INFERIOR INFARCT : Confirmed by: Jaxson Paulson MD 20-Feb-2020 18:12:00
[2020-02-20 19:07] LABS: APPEARANCE,URINE CLOUDY; BILIRUBIN,URINE NEGATIVE (NEGATIVE); COLOR,URINE YELLOW; GLUCOSE, URINE NEGATIVE (NEGATIVE); KETONES,URINE TRACE mg/dL (NEGATIVE); LEUKOCYTE ESTERASE,URINE NEGATIVE (NEGATIVE); NITRITE,URINE NEGATIVE (NEGATIVE); PROTEIN,URINE 100 mg/dL (NEGATIVE); URINE SPECIFIC GRAVITY 1.017; UROBILINOGEN,URINE NEGATIVE mg/dL (<2.0)
[2020-02-20 19:11] LABS: HEMATOCRIT 30.6 % (36.0-47.0); HEMOGLOBIN 10.4 g/dL (12.0-15.5); MEAN CORPUSCULAR VOLUME 83 fl (80-97); RED BLOOD COUNT 3.69 10^6/uL (3.72-5.28)
[2020-02-20 19:12] LABS: MEAN CORPUSCULAR HEMOGLOBIN 28.2 pg (27.0-33.4); PLATELET COUNT 70 10^3/uL (150-450); RED CELL DISTRIBUTION WIDTH 15.6 % (11.5-14.0)
[2020-02-20 19:18] LABS: BASOPHILS % (MANUAL) 0 % (0-2); EOSINOPHILS % (MANUAL) 0 % (0-6); TOTAL CELLS COUNTED 100
[2020-02-20 19:26] LABS: ANISOCYTOSIS SLIGHT; BURR CELLS SLIGHT; OVALOCYTES SLIGHT; PLATELET COMMENT DECREASED; POLYCHROMASIA SLIGHT; SMUDGE CELLS PRESENT; TEAR DROP CELLS SLIGHT
[2020-02-20] MEDS ORDERED: MEROPENEM 1 GM VIAL IV ONE (23:17)
[2020-02-21] MEDS ORDERED: MAGNESIUM HYDROXIDE SUSP 30 ML UDCUP PO PRN (00:51)
[2020-02-21] MEDS ORDERED: ONDANSETRON 4 MG TAB.RAPDIS PO PRN (00:51)
[2020-02-21] MEDS ORDERED: MAG HYDROX/AL HYDROX/SIMETH SUSP 30 ML UDCUP PO PRN (00:51)
[2020-02-21] MEDS ORDERED: ONDANSETRON HCL INJ/PF 4 MG/2 ML SDV IV PRN (00:51)
[2020-02-21] MEDS ORDERED: MEROPENEM 500 MG VIAL IV PRN (01:00)
[2020-02-21] MEDS ORDERED: ACETAMINOPHEN 325 MG TABLET PO PRN (01:02)
[2020-02-21] MEDS ORDERED: HYDRALAZINE HCL INJ/PF 20 MG/1 ML SDV IV PRN (01:02)
[2020-02-21] MEDS ORDERED: MORPHINE SULFATE 10 MG/ML INJ IV PRN ×4 (01:02→01:11)
[2020-02-21] MEDS ORDERED: LORAZEPAM INJ 2 MG/1 ML VIAL IV PRN (01:02)
[2020-02-21] MEDS ORDERED: GUAIFENESIN SYRP 200 MG/10 ML UDC PO PRN (01:02)
[2020-02-21] MEDS ORDERED: METOPROLOL TARTRATE PF/INJ 5 MG/5 ML SDV IV PRN (01:02)
[2020-02-21] MEDS ORDERED: MELATONIN 5 MG TABLET PO PRN (01:02)
[2020-02-21 01:28] LABS: ABSOLUTE RETICS # 0.015 10^6/uL (0.028-0.122)
[2020-02-21] MEDS: DEXTROSE 5%-LACTATED RINGERS 1,000 ML IV PRN ×2 (02:15→11:31)
[2020-02-21 02:32] LABS: RETICULOCYTE COUNT (AUTO) 0.39 % (0.66-2.85)
[2020-02-21 03:59] LABS: FOLATE 6.98 ng/mL (>2.76)
--- NOTE | 2020-02-21 04:10 | PDOC H&P ---
History of Present Illness Admission Date/PCP: 02/20/20 23:33 MYLA BIGGS Patient complains of: Abdominal pain History of Present Illness: ASTER AVILA is a 79 year old female who presented to the emergency room with a 1 month history of abdominal pain. She admits 1 month of constant sharp crampy lower abdominal pain which radiates to both flanks and has become severe for the last week. She admits accompanying anorexia, nausea for 1 week and diarrhea which started today with only one loose stool. She admits an associated intermittent nonproductive cough. Her abdominal pain symptoms did not improve with Protonix taken at home. She denies other associated or accompanying signs and symptoms. She denies prior similar episodes. She has not identified any aggravating or ameliorating factors for her abdominal pain. In the emergency room she was found to have pyuria, a 30,000 white blood count (with 59% lymphocytes and 28% monocytes) and a creatinine of 4.04 with a BUN of 42 and a potassium of 6.0. Her CT scan showed obstructive uropathy on the right according to the radiologist but a urologist at [facility] suggested that he did not recommend ureteral stenting at this time, favoring treating her urinary tract infection and repeating her CT scan after she has improved. Patient was subsequently admitted to the medical service for further evaluation and clinton atment. Past Medical History Cardiac Medical History: Reports: Hypertension Denies: Atrial Fibrillation, Congestive Heart Failure, Coronary Artery Disease, DVT, Hyperlipidema, Pulmonary Embolism Pulmonary Medical History: Denies: Asthma, Chronic Obstructive Pulmonary Disease (COPD) EENT Medical History: Denies: Cataracts, Ears - Hearing aids Neurological Medical History: Denies: Hemorrhagic CVA, Ischemic CVA, Seizures Endocrine Medical History: Denies: Diabetes Mellitus Type 1, Diabetes Mellitus Type 2, Hyperthyroidism, Hypothyroidism, Obesity Renal/ Medical History: Denies: Chronic Kidney Disease, Nephrolithiasis Malignancy Medical History: Reports: None GI Medical History: Reports: Gastroesophageal Reflux Disease Denies: Cirrhosis, Crohn's Disease, Hepatitis, Peptic Ulcer Disease, Ulcerative Colitis Musculoskeltal Medical History: Denies: Fibromyalgia, Gout Skin Medical History: Denies: Eczema, Psoriasis Psychiatric Medical History: Denies: Alcohol Dependency, Substance Abuse, Tobacco Dependency Traumatic Medical History: Reports: None Hematology: Denies: Anemia, Bleeding Tendencies Infectious Medical History: Reports: None Past Surgical History Past Surgical History: Reports: None Social History Information Source: Patient Lives with: Alone Smoking Status: Never Smoker Electronic Cigarette use?: No Frequency of Alcohol Use: None Hx Recreational Drug Use: No Drugs: None Hx Prescription Drug Abuse: No - Advance Directive Resuscitation Status: Full Code Surrogate healthcare decision maker:: Adia Rivera Family History Family History: denies: CAD, DM, Hypertension, Malignancy Parental Family History Reviewed: Yes Children Family History Reviewed: No Sibling(s) Family History Reviewed.: Yes Medication/Allergy Home Medications: Meclizine HCl [Verticalm] 25 mg PO Q6HP PRN #20 tablet 10/06/13 Meclizine HCl [Antivert 12.5 mg Tablet] 12.5 mg PO BID PRN #14 tablet 10/14/18 Ondansetron HCl [Zofran 4 mg Tablet] 1 - 2 tab PO Q4H PRN #10 tablet 10/14/18 Allergies/Adverse Reactions: No Known Allergies Allergy (Verified 10/14/18 12:10) Physical Exam Vital Signs: Temp Pulse Resp BP Pulse Ox 98.1 F 109 H 22 H 138/80 H 100 02/20/20 20:00 02/20/20 14:06 02/20/20 21:00 02/20/20 21:00 02/20/20 21:00 Intake & Output 02/19/20 02/20/20 02/21/20 23:59 23:59 23:59 Intake Total 2049 Balance 2049 Weight 75.75 kg General appearance: PRESENT: cooperative, mild distress - Secondary to abdominal pain Head exam: PRESENT: atraumatic, normocephalic Eye exam: PRESENT: conjunctiva pink. ABSENT: conjunctival injection, scleral icterus Ear exam: PRESENT: normal external ear exam. ABSENT: bleeding, drainage Mouth exam: PRESENT: dry mucosa, neck supple Neck exam: ABSENT: thyromegaly, tracheal deviation Respiratory exam: PRESENT: clear to auscultation kirill, symmetrical, unlabored Cardiovascular exam: PRESENT: RRR. ABSENT: clicks, gallop, rubs Pulses: PRESENT: normal radial pulses, normal dorsalis pedis pul Vascular exam: PRESENT: normal capillary refill. ABSENT: pallor GI/Abdominal exam: PRESENT: normal bowel sounds, soft, tenderness - Generalized tenderness in the bilateral lower abdominal quadrants without point localization Rectal exam: PRESENT: deferred Gentrourinary exam: PRESENT: other - Right CVA tenderness on percussion Extremities exam: ABSENT: joint swelling, pedal edema Musculoskeletal exam: ABSENT: deformity, dislocation Neurological exam: PRESENT: alert, oriented to person, oriented to place, oriented to time, oriented to situation, CN II-XII grossly intact. ABSENT: motor sensory deficit Psychiatric exam: PRESENT: appropriate affect, normal mood Skin exam: PRESENT: dry, intact, warm. ABSENT: jaundice, rash, urticaria Results Laboratory Results: 02/20/20 18:02 02/20/20 15:34 02/20/20 02/20/20 02/20/20 15:34 15:34 18:02 WBC Cancelled 30.0 H* RBC Cancelled 3.69 L Hgb Cancelled 10.4 L Hct Cancelled 30.6 L MCV Cancelled 83 MCH Cancelled 28.2 MCHC Cancelled 34.0 RDW Cancelled 15.6 H Plt Count Cancelled 70 L Seg Neutrophils % Cancelled Not Reportable Sodium 135.7 L Potassium 6.0 H* Chloride 104 Carbon Dioxide 20 L Anion Gap 12 BUN 42 H Creatinine 4.04 H Est GFR ( Amer) 13 L Glucose 123 H Lactic Acid Calcium 9.6 Total Bilirubin 0.6 AST 35 Alkaline Phosphatase 88 Total Protein 7.9 Albumin 4.0 Lipase 33.6 Urine Color Urine Appearance Urine pH Ur Specific [place] Urine Protein Urine Glucose (UA) Urine Ketones Urine Blood Urine Nitrite Ur Leukocyte Esterase Urine WBC (Auto) Urine RBC (Auto) 02/20/20 02/20/20 18:27 18:35 WBC RBC Hgb Hct MCV MCH MCHC RDW Plt Count Seg Neutrophils % Sodium Potassium Chloride Carbon Dioxide Anion Gap BUN Creatinine Est GFR ( Amer) Glucose Lactic Acid 0.8 Calcium Total Bilirubin AST Alkaline Phosphatase Total Protein Albumin Lipase Urine Color YELLOW Urine Appearance CLOUDY Urine pH 5.0 Ur Specific [place] 1.017 Urine Protein 100 H Urine Glucose (UA) NEGATIVE Urine Ketones TRACE H Urine Blood MODERATE H Urine Nitrite NEGATIVE Ur Leukocyte Esterase NEGATIVE Urine WBC (Auto) 163 Urine RBC (Auto) 61 02/20/20 15:34 Troponin I < 0.012 Impressions: Chest X-Ray 02/20/20 15:07 IMPRESSION: NO ACUTE RADIOGRAPHIC FINDING IN THE CHEST. Abdomen/Pelvis CT 02/20/20 16:21 IMPRESSION: While findings may represent right-sided obstructive uropathy, the degree of hydronephrosis and perinephric fat stranding appears to be out of proportion to the relatively mild ureterectasis and 3 mm rounded ureterolith. Recommend correlation for possible superimposed pyelonephritis. Assessment and Plan - Diagnosis (1) Pyelonephritis of right kidney Is this a current diagnosis for this admission?: Yes (2) Ureterolithiasis Is this a current diagnosis for this admission?: Yes (3) Elevated serum creatinine Is this a current diagnosis for this admission?: Yes (4) Hyperkalemia Is this a current diagnosis for this admission?: Yes (5) Normochromic normocytic anemia Is this a current diagnosis for this admission?: Yes (6) Lymphocytosis Is this a current diagnosis for this admission?: Yes (7) Monocytosis Is this a current diagnosis for this admission?: Yes (8) Thrombocytopenia Is this a current diagnosis for this admission?: Yes (9) Hypertension Qualifiers: Hypertension type: essential hypertension Qualified Code(s): I10 - Essential (primary) hypertension Is this a current diagnosis for this admission?: Yes - Plan Summary Summary: Patient will be admitted to the medical floor where she will receive routine supportive and symptomatic cares. A nephrology consultation will be obtained with Dr. Patino. A hematology consultation will be obtained with Dr. Blackwood. Patient will be treated with IV fluids utilizing D5 LR at 167 mL/h initially. She will receive meropenem 500 mg IV every 12 hours (renally adjusted dosing). She will use morphine sulfate 2 to 4 mg IV every 2 hours as needed for pain. She will use Ativan 1 mg IV every 4 hours as needed for anxiety or restlessness. Her hyperkalemia was treated with an IV cocktail in the emergency room and will be followed closely throughout her hospital course. Urine and blood cultures were obtained in the emergency room and are pending at this time. Patient will be treated with a cardiac diet as tolerated. An anemia profile will be obtained. Additional laboratory and/or radiographic evaluations will be obtained as needed. - Time Time Spent with patient: 15-24 minutes Medications reviewed and adjusted accordingly: Yes Anticipated Discharge Disposition: Home, Self Care Anticipated Discharge Timeframe: Undetermined - Inpatient Certification Based on my medical assessment, after consideration of the patient's jesus rbidities, presenting symptoms, or acuity I expect that the services needed warrant INPATIENT care.: Yes I certify that my determination is in accordance with my understanding of Medicare's requirements for reasonable and necessary INPATIENT services [42 CFR 412.3e].: Yes Medical Necessity: Need Close Monitoring Due to Risk of Patient Decompensation, Need For IV Fluids, Need for Pain Control, Need for IV Antibiotics, Risk of Complication if Not Cared For in Hospital
[2020-02-21] MEDS ORDERED: PANTOPRAZOLE SODIUM 20 MG TABLET.DR PO SCH (06:00)
[2020-02-21 09:15] LABS: URINE CREATININE 264.2 mg/dL (15-278)
[2020-02-21 09:38] LABS: HEMATOCRIT 31.8 % (36.0-47.0); HEMOGLOBIN 10.7 g/dL (12.0-15.5); MEAN CORPUSCULAR HEMOGLOBIN 27.7 pg (27.0-33.4); MEAN CORPUSCULAR HGB CONC 33.7 g/dL (32.0-36.0); MEAN CORPUSCULAR VOLUME 82 fl (80-97); RED BLOOD COUNT 3.86 10^6/uL (3.72-5.28); RED CELL DISTRIBUTION WIDTH 15.8 % (11.5-14.0); WHITE BLOOD COUNT 28.1 10^3/uL (4.0-10.5)
[2020-02-21 09:55] LABS: ALBUMIN 3.5 g/dL (3.5-5.0); ALKALINE PHOSPHATASE 72 U/L (38-126); ANION GAP 11 (5-19); ASPARTATE AMINO TRANSFERASE 28 U/L (14-36); BILIRUBIN,DIRECT 0.5 mg/dL (0.0-0.4); BILIRUBIN,TOTAL 0.5 mg/dL (0.2-1.3); BLOOD UREA NITROGEN 39 mg/dL (7-20); CALCIUM 9.1 mg/dL (8.4-10.2); CARBON DIOXIDE 20 mmol/L (22-30); CHLORIDE 108 mmol/L (98-107); GLUCOSE 193 mg/dL (75-110); PHOSPHORUS 3.7 mg/dL (2.5-4.5); TOTAL PROTEIN 7.2 g/dL (6.3-8.2)
[2020-02-21] MEDS ORDERED: MEROPENEM 500 MG in NORMAL SALINE 50 ML IV SCH (10:00)
[2020-02-21 10:07] LABS: POTASSIUM 4.7 mmol/L (3.6-5.0)
[2020-02-21 10:43] LABS: ABSOLUTE LYMPHOCYTES# (MANUAL) 14.1 10^3/uL (0.5-4.7); ABSOLUTE MONOCYTES # (MANUAL) 1.1 10^3/uL (0.1-1.4); BAND NEUTROPHILS % (MANUAL) 1 % (3-5); BASOPHILS % (MANUAL) 0 % (0-2); EOSINOPHILS % (MANUAL) 0 % (0-6); IMMATURE MONONUCLEAR% (MANUAL) 40 % (0); LYMPHOCYTES % (MANUAL) 50 % (13-45); MONOCYTES % (MANUAL) 4 % (3-13); MYELOCYTES % (MANUAL) 3 % (0); NUCLEATED RED BLOOD CELLS 3 /100 WBC (0); PROMYELOCYTES % (MANUAL) 6 % (0); SEGMENTED NEUTROPHILS % (MAN) 6 % (42-78); TOTAL CELLS COUNTED 100
[2020-02-21 10:44] LABS: SMUDGE CELLS PRESENT
[2020-02-21 10:45] LABS: ANISOCYTOSIS 1+; PLATELET COMMENT DECREASED; POIKILOCYTOSIS SLIGHT; POLYCHROMASIA 1+; SCHISTOCYTES SLIGHT
--- NOTE | 2020-02-21 11:09 | PDOC CONSULTATION ---
Consultation Consult Date: 02/21/20 Provider Consulted: Betito PRECIADO Consult reason:: OPAL History of Present Illness Admission Date/PCP: 02/20/20 23:33 MYLA BIGGS History of Present Illness: ASTER AVILA is a 79 year old female with a past medical history remarkable for hypertension/GERD but otherwise unremarkable was admitted with a history of worsening acute on chronic abdominal pains. She complains of hypogastric pain that is rather intermittent with mild dysuria this been going on for the last month or so. She also admits to the fact that the pain has been radiating from both the flanks but mainly on the left side. She does not recall any precipitating or relieving factors. Occasional nauseous with some episodes of diarrhea which is infrequent. No complaints of any hematuria, fever or chills. She does not recall of having any kidney stone issues in the past. She has been taking Tylenol for these pains by but has avoided NSAIDs. Evaluations in the ER including a noncontrasted CT scan reveals likely right- sided ureterolith with obstructive uropathy/pyelonephritis. She has been begun on antibiotics. Currently feels some better than when she came in. Labs and medications were reviewed. Past Medical History Cardiac Medical History: Reports: Hypertension-primary Denies: Atrial Fibrillation, Coronary Artery Disease, DVT, Hyperlipidemia, Pulmonary Embolism Pulmonary Medical History: Denies: Asthma, Chronic Obstructive Pulmonary Disease (COPD) EENT Medical History: Denies: Cataracts, Ears - Hearing aids Neurological Medical History: Denies: Hemorrhagic CVA, Ischemic CVA, Seizures Endocrine Medical History: Denies: Diabetes Mellitus Type 1, Diabetes Mellitus Type 2, Hyperthyroidism, Hypothyroidism, Obesity Complications of Diabetes: Reports: None Renal/ Medical History: Denies: Nephrolithiasis Malignancy Medical History: Reports: None GI Medical History: Reports: Gastroesophageal Reflux Disease Denies: Cirrhosis, Crohn's Disease, Hepatitis, Peptic Ulcer Disease, Ulcerative Colitis Musculoskeltal Medical History: Denies: Fibromyalgia, Gout Skin Medical History: Denies: Eczema, Psoriasis Psychiatric Medical History: Denies: Alcohol Dependency, Depression, Substance Abuse, Tobacco Dependency Traumatic Medical History: Reports: None Infectious Medical History: Reports: None Past Surgical History Past Surgical History: Reports: None Social History Lives with: Alone Smoking Status: Never Smoker Electronic Cigarette use?: No Frequency of Alcohol Use: None Hx Recreational Drug Use: No Drugs: None Hx Prescription Drug Abuse: No - Advance Directive Resuscitation Status: Full Code Family History Parental Family History Reviewed: Yes - Negative for ESRD Children Family History Reviewed: Yes - Negative for ESRD Sibling(s) Family History Reviewed.: No Medication/Allergy Home Medications: Calcium Citrate 600 mg PO DAILY 02/21/20 Cholecalciferol (Vitamin D3) [Vitamin D3 1000 Unit Tablet] 1,000 unit PO DAILY 02/21/20 Multivitamin [Tab-A-Frederic] 1 each PO DAILY 02/21/20 Olmesartan/Hydrochlorothiazide [Olmesartan-Hctz 40-25 mg Tab] 1 each PO DAILY 1 Pantoprazole Sodium 40 mg PO BID 02/21/20 Allergies/Adverse Reactions: No Known Allergies Allergy (Verified 10/14/18 12:10) Review of Systems Constitutional: PRESENT: anorexia. ABSENT: chills, fatigue, fever(s), he adache(s), night sweats, weakness Nose, Mouth, and Throat: ABSENT: mouth pain, sore throat Cardiovascular: ABSENT: edema, orthropnea, palpitations Respiratory: PRESENT: cough - occasional. ABSENT: dyspnea, hemoptysis Gastrointestinal: PRESENT: abdominal pain, diarrhea, nausea. ABSENT: coffee ground emesis, constipation, dysphagia, hematochezia Genitourinary: PRESENT: dysuria. ABSENT: difficulty urinating, hematuria Musculoskeletal: ABSENT: deformity, joint swelling Integumentary: ABSENT: rash Neurological: ABSENT: abnormal movements, abnormal speech, focal weakness, frequent falls, lack of coordination Endocrine: ABSENT: heat intolerance, polydipsia, polyuria Hematologic/Lymphatic: ABSENT: easy bleeding, easy bruising, lymphadenopathy Physical Exam Vital Signs: Temp Pulse Resp BP Pulse Ox 97.4 F 161 H 16 88/60 L 100 02/21/20 07:57 02/21/20 07:57 02/21/20 07:57 02/21/20 07:57 02/21/20 07:57 Intake & Output 02/20/20 02/21/20 02/22/20 06:59 06:59 06:59 Intake Total 2150 Output Total 100 Balance 2049 Weight 67.6 kg General appearance: PRESENT: no acute distress Eye exam: PRESENT: EOMI. ABSENT: PERRLA Ear exam: PRESENT: normal external ear exam Mouth exam: PRESENT: moist, neck supple Neck exam: ABSENT: lymphadenopathy, meningismus, tenderness, thyromegaly, tracheal deviation Respiratory exam: PRESENT: clear to auscultation kirill, decreased breath sounds. ABSENT: crackles Cardiovascular exam: PRESENT: +S1, +S2 GI/Abdominal exam: PRESENT: normal bowel sounds, soft. ABSENT: organomegaly, tenderness Extremities exam: PRESENT: +1 edema Neurological exam: PRESENT: alert, awake, oriented to person, oriented to place Psychiatric exam: PRESENT: appropriate affect Skin exam: ABSENT: erythema, mottled, rash Results Laboratory Results: 02/21/20 08:56 02/21/20 08:56 02/20/20 02/20/20 02/20/20 15:34 15:34 15:34 WBC Cancelled RBC Cancelled Hgb Cancelled Hct Cancelled MCV Cancelled MCH Cancelled MCHC Cancelled RDW Cancelled Plt Count Cancelled Seg Neutrophils % Cancelled Retic Count (auto) Sodium 135.7 L Potassium 6.0 H* Chloride 104 Carbon Dioxide 20 L Anion Gap 12 BUN 42 H Creatinine 4.04 H Est GFR ( Amer) 13 L Glucose 123 H Lactic Acid Uric Acid 18.7 H Calcium 9.6 Phosphorus Iron TIBC % Saturation Ferritin Total Bilirubin 0.6 AST 35 Alkaline Phosphatase 88 Total Protein 7.9 Albumin 4.0 Lipase 33.6 Vitamin B12 Folate Urine Color Urine Appearance Urine pH Ur Specific [place] Urine Protein Urine Glucose (UA) Urine Ketones Urine Blood Urine Nitrite Ur Leukocyte Esterase Urine WBC (Auto) Urine RBC (Auto) 02/20/20 02/20/20 02/20/20 15:34 18:02 18:02 WBC 30.0 H* RBC 3.69 L Hgb 10.4 L Hct 30.6 L MCV 83 MCH 28.2 MCHC 34.0 RDW 15.6 H Plt Count 70 L Seg Neutrophils % Not Reportable Retic Count (auto) 0.39 L Sodium Potassium Chloride Carbon Dioxide Anion Gap BUN Creatinine Est GFR ( Amer) Glucose Lactic Acid Uric Acid Calcium Phosphorus Iron 96.0 TIBC 223 L % Saturation 43 Ferritin 1080.00 H Total Bilirubin AST Alkaline Phosphatase Total Protein Albumin Lipase Vitamin B12 725.0 Folate 6.98 Urine Color Urine Appearance Urine pH Ur Specific [place] Urine Protein Urine Glucose (UA) Urine Ketones Urine Blood Urine Nitrite Ur Leukocyte Esterase Urine WBC (Auto) Urine RBC (Auto) 02/20/20 02/20/20 02/21/20 18:27 18:35 08:56 WBC 28.1 H RBC 3.86 Hgb 10.7 L Hct 31.8 L MCV 82 MCH 27.7 MCHC 33.7 RDW 15.8 H Plt Count Seg Neutrophils % Not Reportable Retic Count (auto) Sodium Potassium Chloride Carbon Dioxide Anion Gap BUN Creatinine Est GFR ( Amer) Glucose Lactic Acid 0.8 Uric Acid Calcium Phosphorus Iron TIBC % Saturation Ferritin Total Bilirubin AST Alkaline Phosphatase Total Protein Albumin Lipase Vitamin B12 Folate Urine Color YELLOW Urine Appearance CLOUDY Urine pH 5.0 Ur Specific [place] 1.017 Urine Protein 100 H Urine Glucose (UA) NEGATIVE Urine Ketones TRACE H Urine Blood MODERATE H Urine Nitrite NEGATIVE Ur Leukocyte Esterase NEGATIVE Urine WBC (Auto) 163 Urine RBC (Auto) 61 02/21/20 08:56 WBC RBC Hgb Hct MCV MCH MCHC RDW Plt Count Seg Neutrophils % Retic Count (auto) Sodium 138.7 Potassium 4.7 D Chloride 108 H Carbon Dioxide 20 L Anion Gap 11 BUN 39 H Creatinine 3.65 H Est GFR ( Amer) 15 L Glucose 193 H Lactic Acid Uric Acid Calcium 9.1 Phosphorus 3.7 Iron TIBC % Saturation Ferritin Total Bilirubin 0.5 AST 28 Alkaline Phosphatase 72 Total Protein 7.2 Albumin 3.5 Lipase Vitamin B12 Folate Urine Color Urine Appearance Urine pH Ur Specific [place] Urine Protein Urine Glucose (UA) Urine Ketones Urine Blood Urine Nitrite Ur Leukocyte Esterase Urine WBC (Auto) Urine RBC (Auto) 02/20/20 15:34 Troponin I < 0.012 Impressions: Chest X-Ray 02/20/20 15:07 IMPRESSION: NO ACUTE RADIOGRAPHIC FINDING IN THE CHEST. Abdomen/Pelvis CT 02/20/20 16:21 IMPRESSION: While findings may represent right-sided obstructive uropathy, the degree of hydronephrosis and perinephric fat stranding appears to be out of proportion to the relatively mild ureterectasis and 3 mm rounded ureterolith. Recommend correlation for possible superimposed pyelonephritis. Assessment & Plan - Diagnosis (1) Abdominal pain Qualifiers: Abdominal location: generalized Qualified Code(s): R10.33 - Periumbilical pain Plan: Likely from a partially obstructive right obstructive uropathy. 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 Will see how she responds to intravenous antibiotics pending cultures. (2) Acute kidney injury Plan: Likely OPAL secondary to obstructive uropathy/possible dehydration. Continue IV fluids and antibiotics. Unsure if patient had any underlying baseline kidney disease from hypertensive nephropathy. Monitor. (3) Complicated urinary tract infection Plan: Right obstructive uropathy-most likely partial leading to pyelonephritis with sepsis. See how she responds to antibiotics/fluids resuscitation. If she becomes hypotensive she needs to be likely transferred to ICU for pressor support. Monitor closely. (4) Hyperkalemia Is this a current diagnosis for this admission?: Yes Plan: We will treated with fluids and Lokelma. Change Ringer lactate to normal saline. Her dietary potassium should be restricted as well. (5) Hypertension Qualifiers: Hypertension type: essential hypertension Qualified Code(s): I10 - Essential (primary) hypertension Is this a current diagnosis for this admission?: Yes Plan: Currently low normal. Monitor for progressing into septic shock. (6) Kidney stone on right side Plan: Right ureterolith. Monitor. (7) Pyelonephritis of right kidney Is this a current diagnosis for this admission?: Yes Plan: With sepsis. Monitor for septic shock. Continue IV fluids/antibiotics. (8) Sepsis Qualifiers: Sepsis type: sepsis due to unspecified organism Sepsis acute organ dysfunction status: with acute organ dysfunction Severe sepsis acute organ dysfunction type: acute renal failure Acute renal failure type: unspecified Severe sepsis shock status: unspecified Qualified Code(s): A41.9 - Sepsis, unspecified organism; R65.20 - Severe sepsis without septic shock; N17.9 - Acute kidney failure, unspecified Plan: As mentioned earlier. Monitor for septic shock progression.
[2020-02-21 11:11] LABS: PLATELET COUNT 62 10^3/uL (150-450)
[2020-02-21] MEDS: DOCUSATE SODIUM 100 MG CAPSULE PO SCH ×2 (11:31→17:31)
[2020-02-21 11:33] LABS: NUCLEATED RED BLOOD CELLS 5 /100 WBC (0)
[2020-02-21 11:34] LABS: SEGMENTED NEUTROPHILS % (MAN) 7 % (42-78)
[2020-02-21 11:35] LABS: LYMPHOCYTES % (MANUAL) 38 % (13-45)
[2020-02-21 11:36] LABS: ABSOLUTE LYMPHOCYTES# (MANUAL) 11.4 10^3/uL (0.5-4.7); IMMATURE MONONUCLEAR% (MANUAL) 46 % (0)
[2020-02-21 11:37] LABS: ABSOLUTE MONOCYTES # (MANUAL) 0.9 10^3/uL (0.1-1.4)
[2020-02-21 11:38] LABS: PROMYELOCYTES % (MANUAL) 5 % (0)
[2020-02-21 11:40] LABS: MONOCYTES % (MANUAL) 3 % (3-13)
[2020-02-21 11:41] LABS: METAMYELOCYTES % (MANUAL) 1 % (0-1)
[2020-02-21 13:16] LABS: PATH REVIEW PATHOLOGIST REVIEWED
[2020-02-21] MEDS ORDERED: DEXTROSE 5%-LACTATED RINGERS 1,000 ML IV PRN (13:20)
[2020-02-21 13:53] LABS: PATH REVIEW PATHOLOGIST REVIEWED
--- NOTE | 2020-02-21 14:05 | PDOC CONSULTATION ---
Consultation Consult Date: 02/21/20 Attending physician:: SKYLER SANDOVAL Provider Consulted: PAYAL GOODSON Consult reason:: Leukocytosis concerning for acute leukemia History of Present Illness Admission Date/PCP: 02/20/20 23:33 MYLA BIGGS Patient complains of: Anorexia, poor po intake History of Present Illness: ASTER AVILA is a 79 year old female with h/o anorexia, poor po intake abd discomfort and weakness. She had CT A/P done w/ concern of mild hydroneprhosis and nephrolithiasis, and was found on admit to have wt ct 30, hb 10, plt 79, immature cells noted by tech, just called by pathology noting that there are 40% blasts on peripheral smear. She was initially felt to have possible pyelonephritis. She does have CKD and cr currently is in the 3 range. Past Medical History Cardiac Medical History: Reports: Hypertension Denies: Atrial Fibrillation, Congestive Heart Failure, Coronary Artery Disease, DVT, Hyperlipidema, Pulmonary Embolism Pulmonary Medical History: Denies: Asthma, Chronic Obstructive Pulmonary Disease (COPD) EENT Medical History: Denies: Cataracts, Ears - Hearing aids Neurological Medical History: Denies: Hemorrhagic CVA, Ischemic CVA, Seizures Endocrine Medical History: Denies: Diabetes Mellitus Type 1, Diabetes Mellitus Type 2, Hyperthyroidism, Hypothyroidism, Obesity Renal/ Medical History: Denies: Chronic Kidney Disease, Nephrolithiasis Malignancy Medical History: Reports: None GI Medical History: Reports: Gastroesophageal Reflux Disease Denies: Cirrhosis, Crohn's Disease, Hepatitis, Peptic Ulcer Disease, Ulcerative Colitis Musculoskeltal Medical History: Denies: Fibromyalgia, Gout Skin Medical History: Denies: Eczema, Psoriasis Psychiatric Medical History: Denies: Alcohol Dependency, Depression, Substance Abuse, Tobacco Dependency Traumatic Medical History: Reports: None Hematology: Denies: Anemia, Bleeding Tendencies Infectious Medical History: Reports: None Past Surgical History Past Surgical History: Reports: None Social History Lives with: Alone Smoking Status: Never Smoker Electronic Cigarette use?: No Frequency of Alcohol Use: None Hx Recreational Drug Use: No Drugs: None Hx Prescription Drug Abuse: No - Advance Directive Resuscitation Status: Full Code Family History Family History: denies: CAD, DM, Hypertension, Malignancy Parental Family History Reviewed: Yes Children Family History Reviewed: Yes Sibling(s) Family History Reviewed.: Yes Medication/Allergy Home Medications: Calcium Citrate 600 mg PO DAILY 02/21/20 Cholecalciferol (Vitamin D3) [Vitamin D3 1000 Unit Tablet] 1,000 unit PO DAILY 02/21/20 Multivitamin [Tab-A-Frederic] 1 each PO DAILY 02/21/20 Olmesartan/Hydrochlorothiazide [Olmesartan-Hctz 40-25 mg Tab] 1 each PO DAILY 02/21/20 Pantoprazole Sodium 40 mg PO BID 02/21/20 Allergies/Adverse Reactions: No Known Allergies Allergy (Verified 10/14/18 12:10) Review of Systems Constitutional: ABSENT: chills, fever(s), headache(s), weight gain, weight loss Eyes: ABSENT: visual disturbances Ears: ABSENT: hearing changes Cardiovascular: ABSENT: chest pain, dyspnea on exertion, edema, orthropnea, palpitations Respiratory: ABSENT: cough, hemoptysis Gastrointestinal: ABSENT: abdominal pain, constipation, diarrhea, hematemesis, h ematochezia, nausea, vomiting Genitourinary: ABSENT: dysuria, hematuria Musculoskeletal: ABSENT: joint swelling Integumentary: ABSENT: rash, wounds Neurological: ABSENT: abnormal gait, abnormal speech, confusion, dizziness, focal weakness, syncope Psychiatric: ABSENT: anxiety, depression, homidical ideation, suicidal ideation Endocrine: ABSENT: cold intolerance, heat intolerance, polydipsia, polyuria Hematologic/Lymphatic: ABSENT: easy bleeding, easy bruising Physical Exam Vital Signs: Temp Pulse Resp BP Pulse Ox 97.4 F 161 H 16 88/60 L 100 02/21/20 07:57 02/21/20 07:57 02/21/20 07:57 02/21/20 07:57 02/21/20 07:57 Intake & Output 02/20/20 02/21/20 02/22/20 06:59 06:59 06:59 Intake Total 2150 1140 Output Total 100 50 Balance 2049 1090 Weight 67.6 kg General appearance: PRESENT: no acute distress, well-developed, well-nourished Head exam: PRESENT: atraumatic, normocephalic Eye exam: PRESENT: conjunctiva pink, EOMI, PERRLA. ABSENT: scleral icterus Ear exam: PRESENT: normal external ear exam Mouth exam: PRESENT: moist, tongue midline Neck exam: ABSENT: carotid bruit, JVD, lymphadenopathy, thyromegaly Respiratory exam: PRESENT: clear to auscultation kirill. ABSENT: rales, rhonchi, wheezes Cardiovascular exam: PRESENT: RRR. ABSENT: diastolic murmur, rubs, systolic murmur Pulses: PRESENT: normal dorsalis pedis pul Vascular exam: PRESENT: normal capillary refill GI/Abdominal exam: PRESENT: normal bowel sounds, soft. ABSENT: distended, guarding, mass, organolmegaly, rebound, tenderness Rectal exam: PRESENT: deferred Extremities exam: PRESENT: full ROM. ABSENT: calf tenderness, clubbing, pedal edema Neurological exam: PRESENT: alert, awake, oriented to person, oriented to place, oriented to time, oriented to situation, CN II-XII grossly intact. ABSENT: motor sensory deficit Psychiatric exam: PRESENT: appropriate affect, normal mood. ABSENT: homicidal ideation, suicidal ideation Skin exam: PRESENT: dry, intact, warm. ABSENT: cyanosis, rash Results Laboratory Results: 02/21/20 08:56 02/21/20 08:56 02/20/20 02/20/20 02/20/20 15:34 15:34 15:34 WBC Cancelled RBC Cancelled Hgb Cancelled Hct Cancelled MCV Cancelled MCH Cancelled MCHC Cancelled RDW Cancelled Plt Count Cancelled Seg Neutrophils % Cancelled Retic Count (auto) Sodium 135.7 L Potassium 6.0 H* Chloride 104 Carbon Dioxide 20 L Anion Gap 12 BUN 42 H Creatinine 4.04 H Est GFR ( Amer) 13 L Glucose 123 H Lactic Acid Uric Acid 18.7 H Calcium 9.6 Phosphorus Iron TIBC % Saturation Ferritin Total Bilirubin 0.6 AST 35 Alkaline Phosphatase 88 Total Protein 7.9 Albumin 4.0 Lipase 33.6 Vitamin B12 Folate Urine Color Urine Appearance Urine pH Ur Specific [place] Urine Protein Urine Glucose (UA) Urine Ketones Urine Blood Urine Nitrite Ur Leukocyte Esterase Urine WBC (Auto) Urine RBC (Auto) 02/20/20 02/20/20 02/20/20 15:34 18:02 18:02 WBC 30.0 H* RBC 3.69 L Hgb 10.4 L Hct 30.6 L MCV 83 MCH 28.2 MCHC 34.0 RDW 15.6 H Plt Count 70 L Seg Neutrophils % Not Reportable Retic Count (auto) 0.39 L Sodium Potassium Chloride Carbon Dioxide Anion Gap BUN Creatinine Est GFR ( Amer) Glucose Lactic Acid Uric Acid Calcium Phosphorus Iron 96.0 TIBC 223 L % Saturation 43 Ferritin 1080.00 H Total Bilirubin AST Alkaline Phosphatase Total Protein Albumin Lipase Vitamin B12 725.0 Folate 6.98 Urine Color Urine Appearance Urine pH Ur Specific [place] Urine Protein Urine Glucose (UA) Urine Ketones Urine Blood Urine Nitrite Ur Leukocyte Esterase Urine WBC (Auto) Urine RBC (Auto) 02/20/20 02/20/20 02/21/20 18:27 18:35 08:56 WBC 28.1 H RBC 3.86 Hgb 10.7 L Hct 31.8 L MCV 82 MCH 27.7 MCHC 33.7 RDW 15.8 H Plt Count 62 L Seg Neutrophils % Not Reportable Retic Count (auto) Sodium Potassium Chloride Carbon Dioxide Anion Gap BUN Creatinine Est GFR ( Amer) Glucose Lactic Acid 0.8 Uric Acid Calcium Phosphorus Iron TIBC % Saturation Ferritin Total Bilirubin AST Alkaline Phosphatase Total Protein Albumin Lipase Vitamin B12 Folate Urine Color YELLOW Urine Appearance CLOUDY Urine pH 5.0 Ur Specific [place] 1.017 Urine Protein 100 H Urine Glucose (UA) NEGATIVE Urine Ketones TRACE H Urine Blood MODERATE H Urine Nitrite NEGATIVE Ur Leukocyte Esterase NEGATIVE Urine WBC (Auto) 163 Urine RBC (Auto) 61 02/21/20 08:56 WBC RBC Hgb Hct MCV MCH MCHC RDW Plt Count Seg Neutrophils % Retic Count (auto) Sodium 138.7 Potassium 4.7 D Chloride 108 H Carbon Dioxide 20 L Anion Gap 11 BUN 39 H Creatinine 3.65 H Est GFR ( Amer) 15 L Glucose 193 H Lactic Acid Uric Acid Calcium 9.1 Phosphorus 3.7 Iron TIBC % Saturation Ferritin Total Bilirubin 0.5 AST 28 Alkaline Phosphatase 72 Total Protein 7.2 Albumin 3.5 Lipase Vitamin B12 Folate Urine Color Urine Appearance Urine pH Ur Specific [place] Urine Protein Urine Glucose (UA) Urine Ketones Urine Blood Urine Nitrite Ur Leukocyte Esterase Urine WBC (Auto) Urine RBC (Auto) 02/20/20 15:34 Troponin I < 0.012 Impressions: Chest X-Ray 02/20/20 15:07 IMPRESSION: NO ACUTE RADIOGRAPHIC FINDING IN THE CHEST. Abdomen/Pelvis CT 02/20/20 16:21 IMPRESSION: While findings may represent right-sided obstructive uropathy, the degree of hydronephrosis and perinephric fat stranding appears to be out of proportion to the relatively mild ureterectasis and 3 mm rounded ureterolith. Recommend correlation for possible superimposed pyelonephritis. 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 I spoke w/ Dr. Tatyana Dewey of the hematology service and she feels this is appropriate, recommended initiation of hydrea 1g PO TID. I discused this w/ hospitalist team who will make arrangement thru transfer center. Hopeful transfer today if bed available. - Time Time Spent: Greater than 70 Minutes
[2020-02-21] MEDS ORDERED: NORMAL SALINE 1000 ML 1,000 ML IV ONE (15:22)
--- NOTE | 2020-02-21 15:23 | PDOC PROGRESS REPORT ---
Subjective Progress Note for:: 02/21/20 Subjective:: Gema Alexander 79/f, PMH of HTN, HLD who was admitted Feb 20, 2020 due to dysuria, anorexia and abdominal pain. She has been experiencing periumbilical pain for a few weeks with mild anorexia, denies any fever. She went to her PCP about 1 week [employer] because she thought she has gallbladder stone and was told she did not have it. No meds prescribed. Her abdominal pain continued, on and off, crampy 10/10 at its worst with radiation to the back. She also complains of pa inful urination and cloudy urine. Persistence of abdominal pain prompted ED visit. In the ED, VS 110/59, HR 90, RR 18, T 97.4. CBC showed a WBC count of 30,000. Hgb 10.4, platelet 70. CMP showed a crea 4.04. CT abdomen showed findings maybe right sided obstructive uropathy, the degree of hydronephrosis and perinephric fat stranding appears to be out of proportion to the relatively mild ureterectasis and 3 mm rounded ureterolith. Possible superimposed pyelonephritis. She was given IV fluids, ceftri in the ED. Nephrology and hematology were consulted for OPAL and Leukocytosis respectively. Abx ewas later switched to meropenem. PEripheral blood smear was reviewed by pathology and it was noted that she had 40% blasts which was highly suspicious for Acute leukemia. She is a never smoker, non alcoholic drinker, no IV drug use. A sister has recently due to Pancreatic cancer and she had an aunt who breast cancer but no family history of leukemia. Dr. Lowery suggested transfer to [facility] for possible chemo. Reason For Visit: ACUTE RIGHT PYELONEPHRITIS,ACUTE RIGHT URETEROLITH Physical Exam Vital Signs: Temp Pulse Resp BP Pulse Ox 97.4 F 161 H 16 88/60 L 100 02/21/20 07:57 02/21/20 07:57 02/21/20 07:57 02/21/20 07:57 02/21/20 07:57 Intake & Output 02/20/20 02/21/20 02/22/20 06:59 06:59 06:59 Intake Total 2150 1140 Output Total 100 50 Balance 2049 1090 Weight 67.6 kg General appearance: PRESENT: no acute distress, cooperative Head exam: PRESENT: atraumatic, normocephalic Eye exam: PRESENT: EOMI, PERRLA Mouth exam: PRESENT: moist Neck exam: PRESENT: full ROM Respiratory exam: PRESENT: clear to auscultation kirill, symmetrical, unlabored. ABSENT: rales, retraction, tachypnea, wheezes Cardiovascular exam: PRESENT: RRR, +S1, +S2 GI/Abdominal exam: PRESENT: normal bowel sounds, soft. ABSENT: rebound, tenderness Extremities exam: PRESENT: full ROM Musculoskeletal exam: PRESENT: full ROM Neurological exam: PRESENT: alert, awake, oriented to person, oriented to place, oriented to time, oriented to situation Psychiatric exam: PRESENT: normal mood Skin exam: PRESENT: normal color Results Laboratory Results: 02/21/20 08:56 02/21/20 08:56 02/20/20 02/20/20 02/20/20 15:34 15:34 15:34 WBC Cancelled RBC Cancelled Hgb Cancelled Hct Cancelled MCV Cancelled MCH Cancelled MCHC Cancelled RDW Cancelled Plt Count Cancelled Seg Neutrophils % Cancelled Retic Count (auto) Sodium 135.7 L Potassium 6.0 H* Chloride 104 Carbon Dioxide 20 L Anion Gap 12 BUN 42 H Creatinine 4.04 H Est GFR ( Amer) 13 L Glucose 123 H Lactic Acid Uric Acid 18.7 H Calcium 9.6 Phosphorus Iron TIBC % Saturation Ferritin Total Bilirubin 0.6 AST 35 Alkaline Phosphatase 88 Total Protein 7.9 Albumin 4.0 Lipase 33.6 Vitamin B12 Folate Urine Color Urine Appearance Urine pH Ur Specific [place] Urine Protein Urine Glucose (UA) Urine Ketones Urine Blood Urine Nitrite Ur Leukocyte Esterase Urine WBC (Auto) Urine RBC (Auto) 02/20/20 02/20/20 02/20/20 15:34 18:02 18:02 WBC 30.0 H* RBC 3.69 L Hgb 10.4 L Hct 30.6 L MCV 83 MCH 28.2 MCHC 34.0 RDW 15.6 H Plt Count 70 L Seg Neutrophils % Not Reportable Retic Count (auto) 0.39 L Sodium Potassium Chloride Carbon Dioxide Anion Gap BUN Creatinine Est GFR ( Amer) Glucose Lactic Acid Uric Acid Calcium Phosphorus Iron 96.0 TIBC 223 L % Saturation 43 Ferritin 1080.00 H Total Bilirubin AST Alkaline Phosphatase Total Protein Albumin Lipase Vitamin B12 725.0 Folate 6.98 Urine Color Urine Appearance Urine pH Ur Specific [place] Urine Protein Urine Glucose (UA) Urine Ketones Urine Blood Urine Nitrite Ur Leukocyte Esterase Urine WBC (Auto) Urine RBC (Auto) 02/20/20 02/20/20 02/21/20 18:27 18:35 08:56 WBC 28.1 H RBC 3.86 Hgb 10.7 L Hct 31.8 L MCV 82 MCH 27.7 MCHC 33.7 RDW 15.8 H Plt Count 62 L Seg Neutrophils % Not Reportable Retic Count (auto) Sodium Potassium Chloride Carbon Dioxide Anion Gap BUN Creatinine Est GFR ( Amer) Glucose Lactic Acid 0.8 Uric Acid Calcium Phosphorus Iron TIBC % Saturation Ferritin Total Bilirubin AST Alkaline Phosphatase Total Protein Albumin Lipase Vitamin B12 Folate Urine Color YELLOW Urine Appearance CLOUDY Urine pH 5.0 Ur Specific [place] 1.017 Urine Protein 100 H Urine Glucose (UA) NEGATIVE Urine Ketones TRACE H Urine Blood MODERATE H Urine Nitrite NEGATIVE Ur Leukocyte Esterase NEGATIVE Urine WBC (Auto) 163 Urine RBC (Auto) 61 02/21/20 08:56 WBC RBC Hgb Hct MCV MCH MCHC RDW Plt Count Seg Neutrophils % Retic Count (auto) Sodium 138.7 Potassium 4.7 D Chloride 108 H Carbon Dioxide 20 L Anion Gap 11 BUN 39 H Creatinine 3.65 H Est GFR ( Amer) 15 L Glucose 193 H Lactic Acid Uric Acid Calcium 9.1 Phosphorus 3.7 Iron TIBC % Saturation Ferritin Total Bilirubin 0.5 AST 28 Alkaline Phosphatase 72 Total Protein 7.2 Albumin 3.5 Lipase Vitamin B12 Folate Urine Color Urine Appearance Urine pH Ur Specific [place] Urine Protein Urine Glucose (UA) Urine Ketones Urine Blood Urine Nitrite Ur Leukocyte Esterase Urine WBC (Auto) Urine RBC (Auto) 02/20/20 15:34 Troponin I < 0.012 Impressions: Chest X-Ray 02/20/20 15:07 IMPRESSION: NO ACUTE RADIOGRAPHIC FINDING IN THE CHEST. Abdomen/Pelvis CT 02/20/20 16:21 IMPRESSION: While findings may represent right-sided obstructive uropathy, the degree of hydronephrosis and perinephric fat stranding appears to be out of proportion to the relatively mild ureterectasis and 3 mm rounded ureterolith. Recommend correlation for possible superimposed pyelonephritis. Assessment and Plan - Diagnosis (1) Abdominal pain Qualifiers: Abdominal location: periumbilical Qualified Code(s): R10.33 - Periumbilical pain Is this a current diagnosis for this admission?: Yes Plan: - came in due to abdominal pain radiating to the back x 2 weeks - CT abdomen findings maybe right sided obstructive uropathy, the degree of hydronephrosis and perinephric fat stranding appears to be out of proportion to the relatively mild ureterectasis and 3 mm rounded ureterolith. Possible superimposed pyelonephritis. 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 Is this a current diagnosis for this admission?: Yes Plan: - no known personal or family history of leukemia - WBC 30,000 40% blast on PBS - Uric acid 18.4 - awaiting LDH, phosphorus, PT/INR, PTT fibrinogen - started on hydroxyurea - allopurinol to prevent TLS - transfer to [facility] for possible induction chemo (3) Acute kidney injury Is this a current diagnosis for this admission?: Yes Plan: - complaining of dysuria and abdominal pain - CT abdomen as described - UA +ve blood,negative nitrite and leukocyte esterase - Crea 4.04, baseline 0.9 a few months ago - ddx: 2/2 acute leukemia, or pre renal from dehydration - nephro consulted - continue IV fluids (4) Hyperkalemia Is this a current diagnosis for this admission?: Yes Plan: - K 6.0>4.7 - s/p Ca gluconate - likely 2/2 OPAL - continue to monitor (5) Hypertension Qualifiers: Hypertension type: essential hypertension Qualified Code(s): I10 - Essential (primary) hypertension Is this a current diagnosis for this admission?: Yes Plan: - on Olmesartan held for OPAL (6) Hyperuricemia Is this a current diagnosis for this admission?: Yes Plan: - Uric acid 18.4 - likely 2/2 acute leukemia - no rasburicase available right now - alopurinol 200 renally adjusted - continue IV fluids - Plan Summary Summary: . - Time Time Spent with patient: 35 or more minutes Medications reviewed and adjusted accordingly: Yes Anticipated Discharge Disposition: Tertiary Anticipated Discharge Timeframe: within 48 hours
[2020-02-21] MEDS ORDERED: ALLOPURINOL 100 MG TABLET PO SCH (16:00)
[2020-02-21 16:02] LABS: PHOSPHORUS 2.9 mg/dL (2.5-4.5)
--- NOTE | 2020-02-21 16:34 | PDOC TRANSFER SUMMARY ---
General Admission Date/PCP: 02/20/20 23:33 MYLA BIGGS Resuscitation Status: Full Code - Transfer Diagnosis (1) Abdominal pain Is this a current diagnosis for this admission?: Yes Diagnosis Summary: came in due to abdominal pain radiating to the back x 2 weeks - CT abdomen findings maybe right sided obstructive uropathy, the degree of hydronephrosis and perinephric fat stranding appears to be out of proportion to the relatively mild ureterectasis and 3 mm rounded ureterolith. Possible superimposed pyelonephritis. 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 Is this a current diagnosis for this admission?: Yes Diagnosis Summary: no known personal or family history of leukemia - WBC 30,000 40% blast on PBS - Uric acid 18.4 - awaiting LDH, phosphorus, PT/INR, PTT fibrinogen - started on hydroxyurea - allopurinol to prevent TLS - transfer to [facility] for possible induction chemo (3) Acute kidney injury Is this a current diagnosis for this admission?: Yes Diagnosis Summary: complaining of dysuria and abdominal pain - CT abdomen as described - UA +ve blood,negative nitrite and leukocyte esterase - Crea 4.04, baseline 0.9 a few months ago - ddx: 2/2 acute leukemia, or pre renal from dehydration - nephro consulted - continue IV fluids (4) Hyperkalemia Is this a current diagnosis for this admission?: Yes Diagnosis Summary: K 6.0>4.7 - s/p Ca gluconate - likely 2/2 OPAL - continue to monitor (5) Hypertension Is this a current diagnosis for this admission?: Yes Diagnosis Summary: on Olmesartan held for OPAL (6) Hyperuricemia Is this a current diagnosis for this admission?: Yes Diagnosis Summary: Uric acid 18.4 - likely 2/2 acute leukemia - no rasburicase available right now - alopurinol 200 renally adjusted - continue IV fluids - Transfer Medications Home Medications: Calcium Citrate 600 mg PO DAILY 02/21/20 Cholecalciferol (Vitamin D3) [Vitamin D3 1000 Unit Tablet] 1,000 unit PO DAILY 02/21/20 Multivitamin [Tab-A-Frederic] 1 each PO DAILY 02/21/20 Olmesartan/Hydrochlorothiazide [Olmesartan-Hctz 40-25 mg Tab] 1 each PO DAILY 02/21/20 Pantoprazole Sodium 40 mg PO BID 02/21/20 Transfer Medications: Current Medications Acetaminophen (Tylenol 325 Mg Tablet) 650 mg PO Q4HP PRN PRN Reason: For headache, pain or fever Stop: 03/22/20 01:01 EST Al Hydrox/Mg Hydrox/Simethicone (Maalox Plus Susp 30 Udcup) 30 ml PO Q6HP PRN PRN Reason: HEARTBURN Stop: 03/22/20 00:50 Allopurinol (Zyloprim 100 Mg Tablet) 200 mg PO DAILY ERIKA Stop: 03/22/20 15:59 Docusate Sodium (Colace 100 Mg Capsule) 100 mg PO BID ERIKA Stop: 03/22/20 09:59 Last Admin: 02/21/20 11:31 Dose: Not Given Documented by: Guaifenesin (Robitussin Syrup 200 Mg/10 Ml Ud Cup) 200 mg PO Q4HP PRN PRN Reason: COUGH Stop: 03/22/20 01:01 EST Hydralazine HCl (Apresoline Inj/Pf 20 Mg/1 Ml Sdv) 20 mg IV Q4HP PRN PRN Reason: Give For Sbp > 160 / Dbp > 100 Stop: 03/22/20 01:01 EST Hydroxyurea (Hydrea 500 Mg Capsule) 1,000 mg PO TID ERIKA Stop: 03/22/20 17:59 Meropenem 500 mg/ Sodium (Chloride) 50 mls @ 100 mls/hr IV Q12 ERIKA Stop: 02/28/20 09:59 Last Admin: 02/21/20 11:30 Dose: 100 mls/hr, 100 mls/hr Documented by: Dextrose/Lactated Ringer's (D5lr 1000 Ml Iv Soln) 1,000 mls @ 125 mls/hr IV CONTINUOUS PRN PRN Reason: THIS MED IS NOT "PRN" Stop: 03/22/20 00:50 Magnesium Hydroxide (Milk Of Magnesia 30 Ml Udcup) 30 ml PO HSP PRN PRN Reason: FOR CONSTIPATION Stop: 03/22/20 00:50 Melatonin (Melatonin 5 Mg Tablet) 5 mg PO HSP PRN PRN Reason: SLEEP OR INSOMNIA Stop: 03/22/20 01:01 EST Metoprolol Tartrate (Lopressor Inj/Pf 5 Mg/5 Ml Sdv) 5 mg IV Q4HP PRN PRN Reason: Give For Sbp > 160 / Dbp > 100 Stop: 03/22/20 01:01 EST Ondansetron HCl (Zofran Odt 4 Mg Tablet) 4 mg PO Q4HP PRN PRN Reason: FOR NAUSEA/VOMITING Stop: 03/22/20 00:50 Pantoprazole Sodium (Protonix [address] Tablet) 20 mg PO Q6AM [facility] Stop: 03/22/20 05:59 Last Admin: 02/21/20 06:08 Dose: Not Given Documented by: Sodium Chloride (Saline Flush 2.5 Ml Monoject Prefil Syrin) 2.5 ml IV Q8 ERIKA Stop: 03/22/20 05:59 Last Admin: 02/21/20 13:18 Dose: Not Given Documented by: - Allergies Allergies/Adverse Reactions: No Known Allergies Allergy (Verified 10/14/18 12:10) Hospital Course Hospital Course: Gema Alexander 79/f, PMH of HTN, HLD who was admitted Feb 20, 2020 due to dysuria, anorexia and abdominal pain. She has been experiencing periumbilical pain for a few weeks with mild anorexia, denies any fever. She went to her PCP about 1 week [employer] because she thought she has gallbladder stone and was told she did not have it. No meds prescribed. Her abdominal pain continued, on and off, crampy 10/10 at its worst with radiation to the back. She also complains of pain ful urination and cloudy urine. Persistence of abdominal pain prompted ED visit. In the ED, VS 110/59, HR 90, RR 18, T 97.4. CBC showed a WBC count of 30,000. Hgb 10.4, platelet 70. CMP showed a crea 4.04. CT abdomen showed findings maybe right sided obstructive uropathy, the degree of hydronephrosis and perinephric fat stranding appears to be out of proportion to the relatively mild ureterectas is and 3 mm rounded ureterolith. Possible superimposed pyelonephritis. She was given IV fluids, ceftri in the ED. Nephrology and hematology were consulted for OPAL and Leukocytosis respectively. Abx ewas later switched to meropenem. PEripheral blood smear was reviewed by pathology and it was noted that she had 40% blasts which was highly suspicious for Acute leukemia. She is a never smoker, non alcoholic drinker, no IV drug use. A sister has recently due to Pancreatic cancer and she had an aunt who breast cancer but no family history of leukemia. Dr. Lowery suggested transfer to [facility] for possible chemo. Physical Exam Vital Signs: Temp Pulse Resp BP Pulse Ox 97.8 F 94 12 93/56 L 95 02/21/20 10:43 02/21/20 10:43 02/21/20 10:43 02/21/20 10:43 02/21/20 10:43 Intake & Output 02/20/20 02/21/20 02/22/20 06:59 06:59 06:59 Intake Total 2150 1140 Output Total 100 50 Balance 0 1090 Weight 67.6 kg General appearance: PRESENT: no acute distress, cooperative Head exam: PRESENT: atraumatic, normocephalic Eye exam: PRESENT: EOMI, PERRLA Mouth exam: PRESENT: moist Throat exam: ABSENT: tonsillar exudate Neck exam: PRESENT: full ROM. ABSENT: JVD, lymphadenopathy Respiratory exam: PRESENT: clear to auscultation kirill, symmetrical, unlabored Cardiovascular exam: PRESENT: RRR, +S1, +S2 GI/Abdominal exam: PRESENT: normal bowel sounds, soft. ABSENT: rebound, tenderness Gentrourinary exam: PRESENT: indwelling catheter Extremities exam: ABSENT: +2 edema Musculoskeletal exam: PRESENT: full ROM Neurological exam: PRESENT: awake, oriented to person, oriented to place, oriented to time, oriented to situation Psychiatric exam: PRESENT: appropriate affect, normal mood Skin exam: PRESENT: normal color Results Laboratory Results: 02/21/20 08:56 02/21/20 08:56 02/20/20 02/20/20 02/20/20 15:34 15:34 15:34 WBC Cancelled RBC Cancelled Hgb Cancelled Hct Cancelled MCV Cancelled MCH Cancelled MCHC Cancelled RDW Cancelled Plt Count Cancelled Seg Neutrophils % Cancelled Retic Count (auto) Sodium Potassium Chloride Carbon Dioxide Anion Gap BUN Creatinine Est GFR ( Amer) Glucose Lactic Acid Uric Acid 18.7 H Calcium Phosphorus Iron 96.0 TIBC 223 L % Saturation 43 Ferritin 1080.00 H Total Bilirubin AST Alkaline Phosphatase Total Protein Albumin Vitamin B12 725.0 Folate 6.98 Urine Color Urine Appearance Urine pH Ur Specific [place] Urine Protein Urine Glucose (UA) Urine Ketones Urine Blood Urine Nitrite Ur Leukocyte Esterase Urine WBC (Auto) Urine RBC (Auto) 02/20/20 02/20/20 02/20/20 18:02 18:02 18:27 WBC 30.0 H* RBC 3.69 L Hgb 10.4 L Hct 30.6 L MCV 83 MCH 28.2 MCHC 34.0 RDW 15.6 H Plt Count 70 L Seg Neutrophils % Not Reportable Retic Count (auto) 0.39 L Sodium Potassium Chloride Carbon Dioxide Anion Gap BUN Creatinine Est GFR ( Amer) Glucose Lactic Acid 0.8 Uric Acid Calcium Phosphorus Iron TIBC % Saturation Ferritin Total Bilirubin AST Alkaline Phosphatase Total Protein Albumin Vitamin B12 Folate Urine Color Urine Appearance Urine pH Ur Specific [place] Urine Protein Urine Glucose (UA) Urine Ketones Urine Blood Urine Nitrite Ur Leukocyte Esterase Urine WBC (Auto) Urine RBC (Auto) 02/20/20 02/21/20 02/21/20 18:35 08:56 08:56 WBC 28.1 H RBC 3.86 Hgb 10.7 L Hct 31.8 L MCV 82 MCH 27.7 MCHC 33.7 RDW 15.8 H Plt Count 62 L Seg Neutrophils % Not Reportable Retic Count (auto) Sodium 138.7 Potassium 4.7 D Chloride 108 H Carbon Dioxide 20 L Anion Gap 11 BUN 39 H Creatinine 3.65 H Est GFR ( Amer) 15 L Glucose 193 H Lactic Acid Uric Acid Calcium 9.1 Phosphorus 3.7 Iron TIBC % Saturation Ferritin Total Bilirubin 0.5 AST 28 Alkaline Phosphatase 72 Total Protein 7.2 Albumin 3.5 Vitamin B12 Folate Urine Color YELLOW Urine Appearance CLOUDY Urine pH 5.0 Ur Specific [place] 1.017 Urine Protein 100 H Urine Glucose (UA) NEGATIVE Urine Ketones TRACE H Urine Blood MODERATE H Urine Nitrite NEGATIVE Ur Leukocyte Esterase NEGATIVE Urine WBC (Auto) 163 Urine RBC (Auto) 61 02/21/20 15:30 WBC RBC Hgb Hct MCV MCH MCHC RDW Plt Count Seg Neutrophils % Retic Count (auto) Sodium Potassium Chloride Carbon Dioxide Anion Gap BUN Creatinine Est GFR ( Amer) Glucose Lactic Acid Uric Acid Calcium Phosphorus 2.9 Iron TIBC % Saturation Ferritin Total Bilirubin AST Alkaline Phosphatase Total Protein Albumin Vitamin B12 Folate Urine Color Urine Appearance Urine pH Ur Specific [place] Urine Protein Urine Glucose (UA) Urine Ketones Urine Blood Urine Nitrite Ur Leukocyte Esterase Urine WBC (Auto) Urine RBC (Auto) 02/20/20 15:34 Troponin I < 0.012 Impressions: Chest X-Ray 02/20/20 15:07 IMPRESSION: NO ACUTE RADIOGRAPHIC FINDING IN THE CHEST. Abdomen/Pelvis CT 02/20/20 16:21 IMPRESSION: While findings may represent right-sided obstructive uropathy, the degree of hydronephrosis and perinephric fat stranding appears to be out of proportion to the relatively mild ureterectasis and 3 mm rounded ureterolith. Recommend correlation for possible superimposed pyelonephritis. Plan Discharge Plan: - Patient to be transferred to [facility] under Dr. Tatyana Dewey for possible induction of chemo for acute Leukemia. She was accepted at [facility] awaiting bed placement. Time Spent: Greater than 30 Minutes
[2020-02-21] MEDS ORDERED: NORMAL SALINE 1000 ML 1,000 ML IV PRN (16:40)
[2020-02-21 17:30] LABS: INTERNATIONAL RATION (INR) 1.47
[2020-02-21 17:31] LABS: FIBRINOGEN 227 mg/dL (209-497); PARTIAL THROMBOPLASTIN TIME 40.8 SEC (23.5-35.8)
[2020-02-21 17:33] VITALS: BP 109/53
[2020-02-21] MEDS ORDERED: HYDROXYUREA 500 MG CAPSULE PO SCH (18:00)
[2020-02-21 18:26] LABS: D-DIMER > 20.00 ug/mL (0.00-0.50)
== END 2020-02-21 20:17 | disposition short-term general hospital (02) | DRG 835 ==
LOC: ER 14:00 → EH 23:33 → 4S 02-21 01:19
PROVIDERS: ADMIT Emergency Medicine; ATTEND Internal Medicine
DX: C95.00 Acute leukemia of unspecified cell type not having achieved remission (principal); N13.6 Pyonephrosis; N17.9 Acute kidney failure, unspecified; K21.9 Gastro-esophageal reflux disease without esophagitis; E87.5 Hyperkalemia; D69.59 Other secondary thrombocytopenia; D64.9 Anemia, unspecified; Z80.0 Family history of malignant neoplasm of digestive organs; Z80.3 Family history of malignant neoplasm of breast; E79.0 Hyperuricemia without signs of inflammatory arthritis and tophaceous disease; I12.9 Hypertensive chronic kidney disease with stage 1 through stage 4 chronic kidney disease, or unspecified chronic kidney disease; N18.30 Chronic kidney disease, stage 3 unspecified
CPT/HCPCS: 36415; 71045; 74176; 80053; 81001; 82570; 82607; 82728; 82746; 82962; 83540; 83550; 83605; 83615; 83690; 84100; 84300; 84484; 84550; 85025; 85045; 85379; 85384; 85610; 85730; 87040; 87086; 93005; 93010; 96361; 96365; 96368; 96375; 99285; J0610; J0696; J1815; J2185; J2405; J3490; J7030; J7121